=== PATIENT | female | born 1970 | race Caucasian/White ===

== ENCOUNTER 2016-10-16 12:57 | Emergency (ER) | payer OTHER ==
[~2016-10-16] VITALS: Ht 165.1 cm; Wt 108.9 kg
[~2016-10-16 12:57] MED LIST: ALBUTEROL-200 PUFFS/ IH; AMBIEN 10MG TAB10 MG PO; ASPIRIN 81MG TA81 MG PO; ASPIRIN EC325 MG PO; AUGMENTIN250 MG/52 PO; BENTYL10 M1 PO; CIPRO 750MG TA750 MG PO; DIFLUCAN 100MG100 MG PO; DIFLUCAN150 MG PO; DULERA1 AR1 IH; FISH OIL1000 MG PO; IPRATROPIUM BROM3 M1 IH; KEFLEX 500MG.500 MG PO; LEVAQUIN500 MG PO; LEVOTHYROXIN0.025 M1 PO; LEVOTHYROXINE0.05 M2 PO; LOPRESSOR 25MG.25 MG PO; MEDROL 4MG. DOSE4 MG PO; MINIVELLE0.025 MG/2 TD; NOMEDS *; PERCOCET1 TAB PO; PHENERGAN W/CO473 ML PO; PHENERGAN25 M3 PO; POTASSIUM CHLO10 ME3 PO; PREDNISONE 20MG20 MG PO; PREDNISONE50 MG PO; PRILOSEC20 M1 PO; PROAIR HFA0.09 MG/AC IH; REGLAN 5MG TABLE5 MG PO; SALMETEROL-F28 PUFFS IN; SYNTHROID 0.00.05 MG PO; TESSALON PERLE100 MG PO; TYLENOL W/CODEI1 TA2 PO; ULTRAM 50 MG TA50 MG PO; VICODIN 7.5/501 EACH PO; VITAMIN D31000 IU PO; VOLTAREN75 MG PO; ZITHROMAX Z PA250 MG PO; ZITHROMAX Z-PA250 M1 PO; ZOFRAN ODT4 MG PO; ZOFRAN ODT8 MG PO; ZOLPIDEM10 M1 PO
[2016-10-16 13:21] LABS: HEMOGLOBIN 12.4 g/dL (12.2-16.2); LYMPH % 44.1 % (10-50.0)
--- NOTE | 2016-10-16 13:32 | Emergency Room Report ---
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 N Clinical Suspician of Infection? N Mental Status: 1 - Regular (Normal Baseline) Sepsis Risk:Low Sepsis Risk Have you (or family members/close friends) recently traveled outside the [place]? N If Yes, where/when: Have you had exposure to infectious disease within the past month? TB? Other? 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 Patient states that she has suffered from headaches now for several months and that this is not the worst headache of her life, was not thunderclap in origin. She takes Claritin daily for seasonal ALLERGIES, but continues to have nasal congestion. 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 She denies any chest pain, history of blood clots, cancer. She does not take exogenous estrogen and no recent periods of prolonged immobility. She does have a history of pneumonia that required CT chest for diagnosis as her pneumonia does not frequently show up on chest x-ray. No fevers, vomiting, diarrhea. She denies any chest pain. ALLERGIES Coded Allergies: No Known Allergies (10/16/16) Home Medications Active Scripts CEPHALEXIN (Keflex 500MG Capsule) 500 MG PO Q8H #30 CAP Prov: 08/28/16 Prednisone (Prednisone 20MG) 20 MG PO BID #10 TAB Prov: 08/28/16 Reported Medications Levothyroxine Sodium 0.05 MG PO DAILY #30 Zolpidem Tartrate (Ambien 10MG) 10 MG PO QHS PRN SLEEP OXYCODONE HCL/ACETAMINOPHEN (Percocet 5-325 MG Tablet) 1 TAB PO Q8PRN Fluconazole (Diflucan 100MG) 100 MG PO DAILY PROMETHAZINE HCL (Phenergan 25MG Tab (Geq)) 25 MG PO Q6HP PRN N/V ALBUTEROL-IPRATROPIUM (Iprat-Albut 0.5-3(2.5) MG/3 Ml) 3 ML IH Q2HP PRN BREATHING Albuterol (Albuterol-Hfa Inhaler) 1 PUFF IH PRN PRN BREATHING OMEPRAZOLE MAGNESIUM (Prilosec 20MG) 20 MG PO DAILY ASPIRIN (Aspirin) 81 MG PO DAILY CHOLECALCIFEROL (VITAMIN D3) (Vitamin D) 1,000 IUNITS PO DAILY History Medical History General CAD? No Angina: No LA: No Hypertension? No Hyperlipidemia? No CHF? No DVT? No PE? No COPD? No Asthma? Yes Anemia? No GERD? No Gastric ulcers? No GI Bleed? No Hernia? No Thyroid Problems? Yes Hypothyroidism? No CVA? No Seizures? No Diabetes? No Insulin Dependent: No Insulin Pump: No Home FSBS? No Renal Insuffiency? No End Stage Renal Disease? No UTI? No Stones? No BPH? No GB Disease: Yes Nephritic Syndrome? No Asplenia? No Hepatitis? No Sickle Cell Disease? No Arthritis? No Migraines? No Cataracts? No Glaucoma? No MRSA? No HIV? No TB? No Anxiety? No Depression? No Cancer? No More? 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 Hx LMP N/A Family History Family Hx Diabetes Yes CAD No Hypertension Yes Hyperlipidemia Yes Cancer Yes TB No Social History Smoking Hx Smoker: Former Smoker Tobacco: No Type Cigarettes Packs/day 1 1/2 - 2 Packs Alcohol Alcohol: No Review of Systems All Other Systems Reviewed and Negative Physical Exam Vital Signs Vital Signs Date Time Temp Pulse Resp B/P Pulse O2 O2 Flow FiO2 Ox Delivery Rate 10/16 1454 65 18 159/71 99 10/16 1452 18 10/16 1300 98.2 82 18 152/87 95 General Appearance normal appearance, WD/WN Eye Exam - bilateral eye normal exam, bilateral eye PERRL, bilateral eye EOMI Ear, Nose, Throat hearing grossly normal, normal pharynx, nasal congestion, erythematous nasal mucosa Neck normal inspection, non-tender, supple, full range of motion Respiratory Status Yes: chest symmetrical, non tender chest. No: respiratory distress. Lung Sounds bilateral: normal breath sounds, lungs clear. Cardiovascular normal exam, regular rate/rhythm, no peripheral edema, no gallop, no JVD, no murmur, no rub, normal peripheral pulses Gastrointestinal normal bowel sounds, normal exam, non tender Extremities non-tender, normal range of motion Strength 5 Upper Ext (L), 5 Upper Ext (R), 5 Lower Ext (L), 5 Lower Ext (R) Neurologic alert, no motor/sensory deficits, oriented x 3 Skin intact, normal color, warm/dry Medical Decision Making LABS/Meds/Orders Pt receiving controlled substance in ED? No Results/Orders Laboratory Tests 10/16/16 1325: Influenza Type A Ag NOT DETECTED, Influenza Type B Ag NOT DETECTED 10/16/16 1310: Sodium 141, Potassium 3.4 L, Chloride 105, Carbon Dioxide 28, BUN 9, Creatinine 0.8, Estimated Creat Clear 154, Estimated GFR (MDRD) 78, Glucose 99, Calcium 8.7 , Total Bilirubin 0.6, AST 37, ALT 54, Alkaline Phosphatase 94, Total Protein 7.5, Albumin 3.5, Globulin 4.0 H, Albumin/Globulin Ratio 0.9 L, WBC 6.8, RBC 4.54, Hgb 12.4, Hct 37.2, MCV 82.0 L, RDW 16.8, Plt Count 209, Gran % 49.4, Gran # 3.4, Lymphocytes % 44.1, Monocytes % 6.5, Lymphocytes # 3.0, Monocytes # 0.4, PUBS MCHC 33.3, MCH 27.3 Current Medication Orders Sig/Sadi Start time Last Medication Dose Route Stop Time Status Admin Dexamethasone 10 MG ONCE ONE 10/16 1545 AC 10/16 PO 10/16 1546 1541 Dexamethasone 0 .STK-MED ONE 10/16 1537 DC .ROUTE Ketorolac 30 MG ONCE ONE 10/16 1500 DC 10/16 Tromethamine IV 10/16 1501 1452 Sodium Chloride 500 ML .STK-MED ONE 10/16 1447 DC IV Ketorolac 0 .STK-MED ONE 10/16 1446 DC Tromethamine .ROUTE Iopamidol 60 ML ONCE ONE 10/16 1445 DC / IV 10/16 1446 1435 Sodium Chloride 20 ML ONCE ONE 10/16 1445 DC / IV 10/16 1446 1435 Sodium Chloride 20 ML ONCE ONE 10/16 1445 DC / IV 10/16 1446 1435 Sodium Chloride 10 ML PRN PRN 10/16 1445 AC 10/16 IV 10/16 1604 1435 Albuterol/Ipratropium 0 .STK-MED ONE 10/16 1320 DC INH Albuterol/Ipratropium 3 ML ONCE ONE 10/16 1315 DC 10/16 INH 10/16 1316 1454 Sodium Chloride 10 ML PRN PRN 10/16 1315 AC IV 10/17 1306 Orders Procedure Date/time Status DIET-NOTHING BY MOUTH 10/16 D Active INFLUENZA A&B ANTIGENS 10/[address] CHEST W/PE PROTOCOL REQ 10/16 1325 Complete RT REQUEST DUONEB 10/16 1306 Active IV SALINE LOCK 10/16 1306 Active CBC WITH AUTO DIFF 10/16 1306 Complete CHEM 12 PROFILE 10/16 1306 Complete XRAY/CT/US XRAY/CT/US XRAY chest XR interpretation by reviewed by me Xray Results normal/NAD CT chest CT Results no PE, possible infectious versus inflammatory reaction LEFT upper lobe Departure Departure Disposition DC Home or Self Care(routine) Clinical Impression Primary Impression: Inflammation of lung Condition STABLE Referrals Som ROWAN,Jesus Osborn (Family) Additional Instructions Take steroids as prescribed. Follow up with primary care provider in 2 days for reevaluation. Return to the emergency department for any acute respiratory distress. Prescriptions Current Visit Scripts Methylprednisolone (Medrol Dose Terell) 4 MG PO UD #1 TERELL TAKE DIRECTED ON PACKAGING ED Critical Care Critical Care No Comments Patient is vital signs within normal limits, has been coughing up blood and headache this morning. She has known sinus disease and headache could be related to this. 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 She has had episodes exactly like this where she has cough, CT diagnosed pneumonia, headache and is given 2 rounds of antibiotics, multiple rounds of steroids and eventually her symptoms resolved. This makes me suspicious that her symptoms really may not be infectious in nature and are more likely inflammatory, resolving either with steroids or spontaneously. She does not have a white count and no fever here. Her CT scan shows inflammation versus infection (no PE), but given her excellent oxygen saturations on room air, no fever, white count I would favor inflammation. I discussed this with the patient and we have considered the risks and benefits of antibiotics versus steroids or both. At this time, given the history, exam, lab findings, we have decided to move forward with steroids only. She is given Decadron here and will be discharged home with a Medrol Dosepak. She will need follow-up with her primary care provider in 2 days for reevaluation. Return to the emergency department for any acute new concerns. at [id number]
--- NOTE | 2016-10-16 14:08 | RADIOLOGY REPORT PS360 ---
CHEST(2 VIEWS-NOT PORTABLE) HISTORY: COUGH,CONGESTION ORDERING PHYSICIAN: Iraj Keller MD PATIENT AGE: 46 years COMPARISON: None available FINDINGS: The cardiomediastinal silhouette and pulmonary vascularity are within normal limits. The lungs are clear without infiltrates, suspicious nodules, or pleural effusions. No acute bony abnormalities. IMPRESSION: Negative chest, no acute finding
--- NOTE | 2016-10-16 15:21 | RADIOLOGY REPORT PS360 ---
CTA-CHEST HISTORY: Hemoptysis, elevated d-dimer HEMOPTYSIS ORDERING PHYSICIAN: Iraj Keller MD PATIENT AGE: 46 years TECHNIQUE: Helical acquisition obtained following the bolus administration of 60 mL of Isovue 370 followed by a saline bolus. Axial, sagittal, and coronal reformatted images are generated and reviewed. COMPARISON: 01/15/2016 FINDINGS: PULMONARY ARTERIES:No pulmonary embolus evident. AORTA:No acute finding. No thoracic aortic aneurysm or dissection evident LUNGS:Lung apices are not included. Old granulomatous disease. There are few scattered lucencies in the lungs nonspecific. No lobar consolidation or collapse. There is patchy tree-in-bud pattern involving the superior segment of the left lower lobe not readily apparent on the previous exam suspicious for inflammation/infection PLEURAL SPACES:No significant effusion. No evidence of pneumothorax. HEART:Unremarkable. Normal heart size. No significant pericardial effusion. MEDIASTINAL AND HILAR STRUCTURES:No mediastinal or hilar mass evident. No dominant adenopathy. BONY STRUCTURES:No acute bony abnormalities apparent LYMPH NODES:No enlarged lymph nodes evident UPPER ABDOMEN:Diffuse fatty liver IMPRESSION: 1. No evidence of pulmonary embolus, aortic aneurysm or dissection. 2. Tree-in-bud pattern in the superior segment left upper lobe consistent with pneumonia
[2016-10-16] MEDS ORDERED: MEDROL 4MG. DOSE4 MG PO (15:41)
[2016-10-16 15:53] VITALS: BP 143/76
[2016-11-27] MEDS ORDERED: BENTYL10 M1 PO (16:58)
[2016-11-27] MEDS ORDERED: ZOFRAN ODT4 MG PO (16:58)
== END 2016-10-16 15:54 | disposition home or self-care (01) ==
LOC: ER 12:57
PROVIDERS: Emergency Medicine
DX: J18.9 Pneumonia, unspecified organism (principal); Z87.891 Personal history of nicotine dependence; J45.909 Unspecified asthma, uncomplicated; R51 Headache
CPT/HCPCS: Q9967

== ENCOUNTER → 2016-11-28 | Outpatient (CLI) | payer OTHER ==
[2016-11-28 15:14] LABS: AEROMONAS NOT DETECTED (NOT DETECTE); CYCLOSPORA CAYETANENSIS NOT DETECTED (NOT DETECTE); E COLI O157 NOT DETECTED (NOT DETECTE); ENTEROAGGREGATIVE E COLI NOT DETECTED (NOT DETECTE); ENTEROPATHOGENIC E COLI NOT DETECTED (NOT DETECTE); ENTEROTOXIGENIC E COLI NOT DETECTED (NOT DETECTE); SHIGA-LIKE TOXIN PROD. E COLI NOT DETECTED (NOT DETECTE); SHIGELLA/ENTEROINVASIVE E COLI NOT DETECTED (NOT DETECTE); VIBRIO CHOLERAE NOT DETECTED (NOT DETECTE)
[2016-11-28 15:15] LABS: ASTROVIRUS NOT DETECTED (NOT DETECTE); NOROVIRUS NOT DETECTED (NOT DETECTE); SAPOVIRUS NOT DETECTED (NOT DETECTE)
== END ==
LOC: LAB 15:13
PROVIDERS: Emergency Medicine
DX: R19.7 Diarrhea, unspecified (principal)

== ENCOUNTER → 2017-01-23 | Outpatient (CLI) | payer OTHER ==
[2017-01-23 14:56] LABS: BUN 9 mg/dL (7-18)
[2017-01-23 15:31] LABS: GFR (ESTIMATED) 44 ML/MIN (59-)
[2017-01-23 15:54] LABS: HEMOGLOBIN 13.2 g/dL (12.2-16.2); LYMPH % 43.1 % (10-50.0)
== END ==
LOC: LAB 14:21
PROVIDERS: Internal Medicine
DX: J45.901 Unspecified asthma with (acute) exacerbation (principal); R91.8 Other nonspecific abnormal finding of lung field

== ENCOUNTER 2017-05-17 14:43 | Outpatient (CLI) | payer OTHER ==
[~2017-05-17 14:43] MED LIST changes: +ALDACTONE 25MG25 MG PO; +DULOXETINE HYDR20 MG PO; +FUROSEMIDE40 MG PO; +GABAPENTIN100 MG PO; +LEVOTHYROXIN0.088 MG PO; +METOPROLOL SUCC25 M2 PO; +MONTELUKAST SOD10 MG PO; +PROPRANOLOL HCL60 MG PO
[2017-05-17 15:05] VITALS: BP 141/90
== END 2017-05-17 15:10 | disposition home or self-care (01) ==
LOC: COP 14:43
DX: J40 Bronchitis, not specified as acute or chronic (principal)

== ENCOUNTER 2017-05-26 11:58 | Emergency (ER) | payer OTHER ==
[~2017-05-26] VITALS: Ht 165.1 cm; Wt 108.9 kg
[2017-05-26] MEDS ORDERED: METFORMIN 500M500 M1 PO (12:06)
[2017-05-26 12:16] LABS: LYMPH # 2.8 K/mm3 (0.7-4.5); LYMPH % 46.1 % (10-50.0)
--- NOTE | 2017-05-26 12:22 | Emergency Room Report ---
History of Present Illness Time Seen by MD Silva Presenting Problem in Triage Pt arrived:Walked Presenting Problem:PT ADVISES SHE STARTED HAVING TIGHT CHEST PAINS LAST NIGHT WITH STABBING HER IN BACK AND PAIN IN HER JAW. HER CHEST PAIN CONTINUED ALL NIGHT AND STILL FEELS TIGHT THIS MORNING. 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 N Clinical Suspician of Infection? N Mental Status: 1 - Regular (Normal Baseline) Sepsis Risk:Low Sepsis Risk Have you (or family members/close friends) recently traveled outside the [place]? N If Yes, where/when: Have you had exposure to infectious disease within the past month? N TB? Other? Specify: Chest pain, continuous at rest, radiating to jaw, since last night; given aspirin on arrival to ED. Has a little nausea, no diaphoresis, a little SOB, no calf pain. Is a patient of Dr. Rosa; has been referred to EP due to bigeminy and trigeminy persistently over the past three months. ALLERGIES Coded Allergies: No Known Allergies (03/10/17) Home Medications Active Scripts Furosemide (Furosemide 40MG) 40 MG PO DAILY #30 TAB Prov: 03/15/17 Spironolactone (Aldactone) 25 MG PO DAILY #30 TAB Prov: 03/15/17 Metoprolol Succinate 25 MG PO DAILY #30 Prov: 03/15/17 Reported Medications DULOXETINE HCL (Duloxetine Hydrochloride) 20 MG PO DAILY #60 Zolpidem Tartrate (Ambien 10MG) 10 MG PO QHS PRN SLEEP ALBUTEROL-IPRATROPIUM (Iprat-Albut 0.5-3(2.5) MG/3 Ml) 3 ML IH Q2HP PRN BREATHING Albuterol (Albuterol-Hfa Inhaler) 1 PUFF IH PRN PRN BREATHING OMEPRAZOLE MAGNESIUM (Prilosec 20MG) 20 MG PO DAILY CHOLECALCIFEROL (VITAMIN D3) (Vitamin D) 1,000 IUNITS PO DAILY Levothyroxine Sodium (Levothyroxine 0.088MG) 0.088 MG PO DAILY #30 Metformin HCl (Metformin) 500 MG PO BID #60 History Medical History General CAD? No Angina: Yes [place]: No Hypertension? No Hyperlipidemia? No CHF? No DVT? No PE? No COPD? No Asthma? Yes Anemia? No GERD? No Gastric ulcers? No GI Bleed? No Hernia? No Thyroid Problems? Yes Hypothyroidism? Yes CVA? No Seizures? No Diabetes? Yes Insulin Dependent: No Insulin Pump: No Home FSBS? No Renal Insuffiency? No End Stage Renal Disease? No UTI? Yes Stones? No BPH? No GB Disease: Yes Nephritic Syndrome? No Asplenia? No Hepatitis? No Sickle Cell Disease? No Arthritis? No Migraines? No Cataracts? No Glaucoma? No MRSA? Yes HIV? No TB? No Anxiety? No Depression? No Cancer? No More? 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 Family History Family Hx Diabetes Yes CAD No Hypertension Yes Hyperlipidemia No Cancer Yes TB No Social History Smoking Hx Smoker: Former Smoker Tobacco: No Packs/day 1 1/2 - 2 Packs Alcohol Alcohol: No Review of Systems All Other Systems Reviewed and Negative Cardiovascular see HPI Physical Exam Vital Signs Vital Signs Date Time Temp Pulse Resp B/P Pulse O2 O2 Flow FiO2 Ox Delivery Rate 05/26 1414 50 16 131/70 98 05/26 1336 50 16 116/55 98 05/26 1333 16 05/26 1249 58 16 144/105 98 05/26 1224 16 05/26 1159 98.2 71 16 147/104 98 General Appearance normal appearance, WD/WN, no apparent distress Eye Exam - bilateral eye normal exam, bilateral eye PERRL, bilateral eye EOMI Neck normal inspection, non-tender, supple, full range of motion Respiratory Status Yes: trachea midline, chest symmetrical, non tender chest. No: respiratory distress, tender on palpation, use of accessory muscles, pain on inspiration, pain on expiration. Lung Sounds bilateral: normal breath sounds, lungs clear. Cardiovascular normal exam, regular rate/rhythm, no peripheral edema, no gallop, no JVD, no murmur, no rub, normal peripheral pulses (bigeminy on monitor), extra beats Peripheral Pulses Pulses normal Yes Gastrointestinal normal bowel sounds, normal exam, non tender, soft, no organomegaly, no pulsatile mass, no guarding, no rebound Extremities non-tender, normal range of motion, normal inspection, normal capillary refill, no calf tenderness, no pedal edema Strength 5 Upper Ext (L), 5 Upper Ext (R), 5 Lower Ext (L), 5 Lower Ext (R) Neurologic alert, normal exam, no motor/sensory deficits, oriented x 3 Glascow Coma Scale Glascow Coma Scale Response Value EYE response: 4 Spontaneously 4 MOTOR response: 6 OBEYS 6 VERBAL response: 5 Oriented & Converses 5 Total 15 Skin intact, normal color Medical Decision Making LABS/Meds/Orders Pt receiving controlled substance in ED? No Results/Orders Laboratory Tests 05/26/17 1410: Urine Color YELLOW, Urine Appearance SL CLOUDY, Urine pH 6.0, Ur Specific [place] 1.025, Urine Protein NEGATIVE, Urine Ketones NEGATIVE, Urine Blood NEGATIVE, Urine Nitrate NEGATIVE, Urine Bilirubin NEGATIVE, Urine Urobilinogen 0.2, Ur Leukocyte Esterase 1+ H, Urine RBC NONE, Urine WBC 3-5, Ur Squamous Epith Cells 20-50, Urine Bacteria 2+, Urine Glucose NEGATIVE 05/26/17 1210: Sodium 140, Potassium 4.2, Chloride 106, Carbon Dioxide 27, BUN 15, Creatinine 1.3 H, Estimated Creat Clear 95, Estimated GFR (MDRD) 44 L, Glucose 119 H, Calcium 8.9, Total Bilirubin 0.4, AST 28, ALT 53, Alkaline Phosphatase 102, Creatine Kinase 78, CK-MB (CK-2) Rel Index 0.6, CK and CKMB Interp < 0.5, Troponin I < 0.02, Total Protein 7.8, Albumin 4.0, Globulin 3.8 H, Albumin/ Globulin Ratio 1.1, WBC 6.1, RBC 4.61, Hgb 13.0, Hct 37.8, MCV 82.0 L, RDW 15.4 , Plt Count 190, MPV 8.0, Gran % 42.3, Gran # 2.6, Lymphocytes % 46.1, Monocytes % 6.1, Eosinophils % 4.5, Basophils % 1.1, Lymphocytes # 2.8, Monocytes # 0.4, Eosinophils # 0.3, Basophils # 0.1, PUBS MCHC 34.4, MCH 28.2 Current Medication Orders Sig/Sadi Start time Last Medication Dose Route Stop Time Status Admin Diltiazem HCl 180 MG BID 05/26 2100 UNV PO Diltiazem HCl 180 MG ONCE ONE 05/26 1515 UNV PO 05/26 1516 Morphine Sulfate 2 MG ONCE ONE 05/26 1500 DC IV 05/26 1501 Furosemide 0 .STK-MED ONE 05/26 1404 DC .ROUTE Furosemide 40 MG ONCE ONE 05/26 1400 DC 05/26 IV 05/26 1401 1406 Morphine Sulfate 2 MG ONCE ONE 05/26 1345 DC 05/26 IV 05/26 1346 1333 Ondansetron HCl 0 .STK-MED ONE 05/26 1334 DC .ROUTE Morphine Sulfate 0 .STK-MED ONE 05/26 1333 DC .ROUTE Ondansetron HCl 4 MG ONCE ONE 05/26 1330 DC 05/26 IV 05/26 1331 1333 Nitroglycerin 0.4 MG ONCE ONE 05/26 1230 DC 05/26 SL 05/26 1231 1224 Nitroglycerin 0 .STK-MED ONE 05/26 1224 DC SL Aspirin 324 MG ONCE ONE 05/26 1215 DC 05/26 PO 05/26 1216 1208 Sodium Chloride 10 ML PRN PRN 05/26 1215 AC IV 05/27 1207 Aspirin 0 .STK-MED ONE 05/26 1206 DC .ROUTE Orders Procedure Date/time Status URINALYSIS/COMPLETE 05/26 1411 Complete CULTURE, URINE 05/26 1410 Active ELECTROCARDIOGRAM REQUEST 05/26 1207 Active CHEST(2 VIEWS-NOT PORTABLE) 05/26 1207 Active IV SALINE LOCK 05/26 120 Active CBC WITH AUTO DIFF 05/26 1207 Complete CARDIAC ENZYMES 05/26 1207 Complete CHEM 12 PROFILE 05/26 1207 Complete 12 LEAD EKG-ZAINAB (INITIAL) 05/26 UNK Active CM/EKG CM/EKG EKG rate, rhythm, no evid. of ischemic chgs, normal LA (bigeminy QTc 504;) XRAY/CT/US XRAY/CT/US XRAY chest XR interpretation by reviewed by me Xray Results normal/NAD, no infiltrates, normal heart size, normal lung inflation nilam Consult MD Physician Consult Time Called 1251 Reason Pt. Condition, Cardiology eval/care Comments called clinic for Jamin Bright to eval pt in ED please Progress ED Progress Notes Date 05/26/17 Time 151 Comment Seen by Jamin Bright; see his note. Will stop Metoprolol and he wrote an Rx for Diltiazem. Departure Departure Time of Disposition 151 Disposition DC Home or Self Care(routine) Clinical Impression Primary Impression: Chest pain Qualifiers: Chest pain type: precordial pain Qualified Code: R07.2 - Precordial pain Secondary Impressions: Bigeminy Condition STABLE Referrals Som ROWAN,Jesus Osborn (PCP/Family) Richar Rosa MD Patient Instructions DI for Chest Pain Additional Instructions STOP Metoprolol; Jamin Bright wrote an Rx for Diltiazem; Dr. Rosa's office is trying to arrange follow up with EP and will contact you with further details. Discharge Counseling Counseled pt/family regarding diagnosis, test results, medications/RX, home care, follow up needs ED Critical Care Critical Care No at 1512
[2017-05-26 12:45] LABS: BUN 15 mg/dL (7-18)
[2017-05-26 12:46] LABS: GFR (ESTIMATED) 44 ML/MIN (59-)
--- NOTE | 2017-05-26 13:48 | CONSULT NOTE ---
See Addendum Standard Demographics Patient Demo Date of Consultation: 05/26/17 Referring Provider: Nela Amador MD Reason for Consultation: Chest pain, bigeminy PRIMARY DIAGNOSIS: chest pain Problem list Problem list: 1. Hypothyroidism, on replacement 2. Remote tobacco use discontinued several years ago, previously smoked one pack per day for about 20 years 3. SHARRON, CPAP use 4. Possible autoimmune disorder, negative workup at [facility] 5. Cardiac cath, 02/2017, Normal coronary arteries. Mild left ventricular dilatation with overall preserved ejection fraction at 55%. Severely elevated LVEDP at 40-45 mm Hg. 6. Diabetes 7. Asthma History of present illness: History of present illness: 46 yo WF with history significant for normal coronaries by cath 02/2017 and persistent frequent PVC's was brought to the ER for chest pain. Patient relates chest pressure anteriorly with sharp discomfort in the back last evening with some associated jaw discomfort that prevented her from resting last night. Symptoms were intermittent throughout the night. Currently, she is in the ERand lying flat on the stretcher in no acute distress. manager contact shows persistent bigeminy. Recently the patient has been titrated up on isosorbide mononitrate without relief of intermittent chest discomfort. Diuretic therapy has been adjusted in the past without significant improvement in her shortness of breath or symptomatology of PVCs. Recommendation has been made for the patient to see an surgical endoscopist in [facility]. The appointment has not been made at this time. Cardiology consulted for evaluation. Initial troponin is normal. Past Medical History: General: Hypertension No CVA No Seizures No TB No COPD No Asthma Yes Diabetes Yes Insulin Dependent No Insulin Pump No Angina Yes TN No Hyperlipidemia No Urinary No Cancer No Rheumatic H.D. No Ulcers No MRSA Yes GB Disease Yes Additional hx DJD OCCULT PNEUMONIA THAT DOESN'T REVEAL ON REG CHEST XRAYS; REQUIRES CT CHEST WITH CONTRAST TO BE SEEN (10/16/16) BIJEMENY Past Surgical HX: Previous Surgery?Y Cholecystectomy Hysterectomy-Partial SLING MESH HYSTERECTOMY LEFT OVARY REMOVED HEART CATH Allergies Coded Allergies: No Known Allergies (03/10/17) Home medications: Active Scripts Furosemide (Furosemide 40MG) 40 MG PO DAILY #30 TAB Prov: 03/15/17 Spironolactone (Aldactone) 25 MG PO DAILY #30 TAB Prov: 03/15/17 Metoprolol Succinate 25 MG PO DAILY #30 Prov: 03/15/17 Reported Medications DULOXETINE HCL (Duloxetine Hydrochloride) 20 MG PO DAILY #60 Zolpidem Tartrate (Ambien 10MG) 10 MG PO QHS PRN SLEEP ALBUTEROL-IPRATROPIUM (Iprat-Albut 0.5-3(2.5) MG/3 Ml) 3 ML IH Q2HP PRN BREATHING Albuterol (Albuterol-Hfa Inhaler) 1 PUFF IH PRN PRN BREATHING OMEPRAZOLE MAGNESIUM (Prilosec 20MG) 20 MG PO DAILY CHOLECALCIFEROL (VITAMIN D3) (Vitamin D) 1,000 IUNITS PO DAILY Levothyroxine Sodium (Levothyroxine 0.088MG) 0.088 MG PO DAILY #30 Metformin HCl (Metformin) 500 MG PO BID #60 Current Medications: Current Medications Morphine Sulfate 2 MG ONCE ONE IV Ondansetron HCl 0 .STK-MED ONE .ROUTE (DC) Morphine Sulfate 0 .STK-MED ONE .ROUTE (DC) Ondansetron HCl 4 MG ONCE ONE IV (DC) Nitroglycerin 0.4 MG ONCE ONE SL (DC) Nitroglycerin 0 .STK-MED ONE SL (DC) Aspirin 324 MG ONCE ONE PO (DC) Sodium Chloride 10 ML PRN PRN IV Aspirin 0 .STK-MED ONE .ROUTE (DC) Immunization HX DT/Tetanus Unknown Flu 2015-FSN Pneumonia RECEIVED IN PAST Family history Family HX Family Hx Insignificant No Diabetes Yes CAD No Hypertension Yes Hyperlipidemia No Cancer Yes TB No Social Hx: Smoking HX Tobacco No Packs/day 1 1/2 - 2 PACKS Alcohol Alcohol: No Hx of Drug Use Drug Use? No Patien't marital status is Patient's support system is good Review of systems: Constitutional weakness. Respiratory SOB with excertion. Cardiovascular chest pain Gastrointestinal/Abdominal No no symptoms reported Genitourinary No: no symptoms reported. Musculoskeletal back pain. Neurological No: no symptoms reported. Exam: Admission Vital Signs: 1ST Vital Signs Result Date Time Pulse Ox 98 05/26 1159 B/P 147/104 05/26 1159 Temp 98.2 05/26 1159 Pulse 71 05/26 1159 Resp 16 05/26 1159 Last Vital Signs: Vital Signs Result Date Time Pulse Ox 98 05/26 1336 B/P 116/55 05/26 133 Pulse 50 05/26 1336 Resp 16 05/26 1336 Temp 98.2 05/26 1159 Exam General appearance: alert, awake, no acute distress Cardiovascular: regular rate & rhythm, extra beats Respiratory: clear to auscultation, good air movement ABD: soft, no tenderness Extremities: moves all, no peripheral edema Neuro: alert, intact, oriented Laboratory data: Laboratory Tests 05/26/17 1210: Sodium 140, Potassium 4.2, Chloride 106, Carbon Dioxide 27, BUN 15, Creatinine 1.3 H, Estimated Creat Clear 95, Estimated GFR (MDRD) 44 L, Glucose 119 H, Calcium 8.9, Total Bilirubin 0.4, AST 28, ALT 53, Alkaline Phosphatase 102, Creatine Kinase 78, CK-MB (CK-2) Rel Index 0.6, CK and CKMB Interp < 0.5, Troponin I < 0.02, Total Protein 7.8, Albumin 4.0, Globulin 3.8 H, Albumin/ Globulin Ratio 1.1, WBC 6.1, RBC 4.61, Hgb 13.0, Hct 37.8, MCV 82.0 L, RDW 15.4 , Plt Count 190, MPV 8.0, Gran % 42.3, Gran # 2.6, Lymphocytes % 46.1, Monocytes % 6.1, Eosinophils % 4.5, Basophils % 1.1, Lymphocytes # 2.8, Monocytes # 0.4, Eosinophils # 0.3, Basophils # 0.1, PUBS MCHC 34.4, MCH 28.2 Plan: Assessment: 1. Chest pain, etiology unknown. 2. PVCs in a bigeminal pattern 3. Normal coronary arteries with diastolic dysfunction has evidenced by LVEDP of 40-45 mmHg on cardiac catheterization 02/2017 Recommendations: 1. I have discussed the situation with Dr. Rosa. We will continue nitrate and beta bisi therapy and increase diuretic therapy. 2. I am contacting Dr. Tripp, surgical endoscopist at [facility] in [facility], to try and arrange for evaluation in the near future, possibly this week. at [phone]
[2017-05-26 14:27] LABS: URINE BILIRUBIN - DIPSTICK NEGATIVE (NEG); URINE BLOOD NEGATIVE (NEG)
[2017-05-26 14:35] LABS: URINE SQUAMOUS CELLS 20-50 #/hpf (0-5)
[2017-05-26 16:48] VITALS: BP 140/60
--- NOTE | 2017-05-26 17:57 | RADIOLOGY REPORT PS360 ---
CHEST(2 VIEWS-NOT PORTABLE) HISTORY: Chest pain and shortness of breath CHEST PAIN ORDERING PHYSICIAN: Nela Amador MD PATIENT AGE: 46 years COMPARISON: 03/13/2017 FINDINGS: The cardiomediastinal silhouette and pulmonary vascularity are within normal limits. The lungs are clear without infiltrates, suspicious nodules, or pleural effusions. No acute bony abnormalities. IMPRESSION: Negative chest, no acute finding
== END 2017-05-26 16:48 | disposition home or self-care (01) ==
LOC: ER 11:58
PROVIDERS: Emergency Medicine
DX: R07.2 Precordial pain (principal); Z79.84 Long term (current) use of oral hypoglycemic drugs; Z79.899 Other long term (current) drug therapy; J45.909 Unspecified asthma, uncomplicated; Z87.891 Personal history of nicotine dependence; E03.9 Hypothyroidism, unspecified; E11.9 Type 2 diabetes mellitus without complications
CPT/HCPCS: J2405

== ENCOUNTER 2017-06-21 19:05 | Emergency (ER) | payer OTHER ==
[~2017-06-21] VITALS: Ht 165.1 cm; Wt 108.9 kg
[~2017-06-21 19:05] MED LIST changes: +METFORMIN 500M500 M1 PO
--- NOTE | 2017-06-21 19:24 | Emergency Room Report ---
History of Present Illness Time Seen by 1922 Presenting Problem in Triage Pt arrived:Walked Presenting Problem:PT CO CHEST PAINS, SHARP STABBING IN NATURE, CONSTANT. GLUCOSE ALSO RUNNING AROUND 300, TOOK EXTRA METFORMIN WITH NO CHANGE IN GLUCOSE. 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 N Clinical Suspician of Infection? N Mental Status: 1 - Regular (Normal Baseline) Sepsis Risk:Low Sepsis Risk Have you (or family members/close friends) recently traveled outside the [place]? N If Yes, where/when: Have you had exposure to infectious disease within the past month? N TB? Other? Specify: Comment The patient points of chest pain as well as feeling hot and having an uncontrollable blood sugar. She says that she has chronic continuous chest pressure for over a month. She says she has been on bigeminy for a couple of months and is supposed to have an ablation done on Friday. However, today she has a new kind of chest pain which she describes as sharp intermittent pains that last for a couple of minutes, coming on every couple of hours, all day today. She has had some respiratory issues recently with a URI, but says other than that she is not having increased trouble breathing. She feels hot but no diaphoresis. No nausea or vomiting. She had preoperative testing done yesterday and saw an anesthesiologist. The sugar has been running 300s and 400s, which is unusual for her. She says she normally runs from the 70s to the 150s. She has taken extra metformin without improvement. She also feels generally hot, but without a fever. No recent hospitalizations or surgeries. No leg pain or swelling. He denies history of coronary artery disease. She does not have hypertension or hyperlipidemia. She does have pulmonary hypertension. ALLERGIES Coded Allergies: No Known Allergies (03/10/17) (Michelle ROWAN, Kris) Source patient, RN notes reviewed, family, old records Home Medications Active Scripts Furosemide (Furosemide 40MG) 40 MG PO DAILY #30 TAB Prov: 03/15/17 Spironolactone (Aldactone) 25 MG PO DAILY #30 TAB Prov: 03/15/17 Metoprolol Succinate 25 MG PO DAILY #30 Prov: 03/15/17 Reported Medications DULOXETINE HCL (Duloxetine Hydrochloride) 20 MG PO DAILY #60 Zolpidem Tartrate (Ambien 10MG) 10 MG PO QHS PRN SLEEP ALBUTEROL-IPRATROPIUM (Iprat-Albut 0.5-3(2.5) MG/3 Ml) 3 ML IH Q2HP PRN BREATHING Albuterol (Albuterol-Hfa Inhaler) 1 PUFF IH PRN PRN BREATHING OMEPRAZOLE MAGNESIUM (Prilosec 20MG) 20 MG PO DAILY CHOLECALCIFEROL (VITAMIN D3) (Vitamin D) 1,000 IUNITS PO DAILY Levothyroxine Sodium (Levothyroxine 0.088MG) 0.088 MG PO DAILY #30 Metformin HCl (Metformin) 500 MG PO BID #60 Prednisone (Prednisone 20MG) 20 MG PO DAILY (Som ROWAN,Jasmine Osborn) History Medical History General CAD? No Angina: Yes AR: No Hypertension? No Hyperlipidemia? No CHF? No DVT? No PE? No COPD? No Asthma? Yes Anemia? No GERD? No Gastric ulcers? No GI Bleed? No Hernia? No Thyroid Problems? Yes Hypothyroidism? Yes CVA? No Seizures? No Diabetes? Yes Insulin Dependent: No Insulin Pump: No Home FSBS? No Renal Insuffiency? No End Stage Renal Disease? No UTI? Yes Stones? No BPH? No GB Disease: Yes Nephritic Syndrome? No Asplenia? No Hepatitis? No Sickle Cell Disease? No Arthritis? No Migraines? No Cataracts? No Glaucoma? No MRSA? Yes HIV? No TB? No Anxiety? No Depression? No Cancer? No More? Yes Additional hx: DJD OCCULT PNEUMONIA THAT DOESN'T REVEAL ON REG CHEST XRAYS; REQUIRES CT CHEST WITH CONTRAST TO BE SEEN (10/16/16) BIJEMENY Immunization Hx Ped.Immunizations UTD Yes DT/Tetanus Unknown Flu 2015-FSN Pneumonia Received In Past Surgical Hx Previous Surgery?Y Cholecystectomy Hysterectomy-Partial SLING MESH HYSTERECTOMY LEFT OVARY REMOVED HEART CATH PICC NURSE Hx LMP menopause Family History Family Hx Diabetes Yes CAD No Hypertension Yes Hyperlipidemia No Cancer Yes TB No Social History Smoking Hx Smoker: Former Smoker Tobacco: No Packs/day 1 1/2 - 2 Packs Are you/the child exposed to second-hand smoke: No Alcohol Alcohol: No (Kris Martinez MD) Review of Systems All Other Systems Reviewed and Negative Constitutional see HPI, denies chills, denies diaphoresis, denies fever Respiratory denies cough, denies shortness of breath Cardiovascular chest pain, denies edema Gastrointestinal denies abdominal pain, denies vomiting (Kris Martinez MD) Physical Exam Vital Signs Vital Signs Date Time Temp Pulse Resp B/P Pulse O2 O2 Flow FiO2 Ox Delivery Rate 06/21 2159 73 20 177/116 94 06/21 2123 59 20 137/69 96 06/21 2052 62 20 154/88 95 06/21 1907 98.1 78 20 153/82 97 General Appearance no apparent distress Eye Exam - bilateral eye normal exam, bilateral eye PERRL, bilateral eye EOMI Ear, Nose, Throat hearing grossly normal, normal ENT inspection Neck normal inspection, non-tender, supple, full range of motion Respiratory Status Yes: trachea midline, chest symmetrical. No: respiratory distress. Lung Sounds bilateral: normal breath sounds, lungs clear. Cardiovascular no peripheral edema, no gallop, no JVD, no murmur, no rub, normal peripheral pulses, extra beats Peripheral Pulses Pulses normal Yes Gastrointestinal normal bowel sounds, normal exam, non tender, soft, no organomegaly Extremities non-tender, normal range of motion, normal inspection, no calf tenderness, no pedal edema Neurologic alert, health analyst II-XII nml as tested, normal exam, oriented x 3 Mental status normal mood/affect Skin intact, normal color, warm/dry (Kris Martinez MD) Medical Decision Making LABS/Meds/Orders Pt receiving controlled substance in ED? No Results/Orders Laboratory Tests 06/21/171950: POC Glucose 271 H 06/21/171909: Lipase 179 06/21/171909: Creatine Kinase 59, CK-MB (CK-2) Rel Index 0.8, CK and CKMB Interp 0.5, Troponin I < 0.02, TSH 0.84, Free T4 Index 5.6 L, Thyroxine (T4) 6.7, T3 Uptake 34 06/21/171909: Sodium 134 L, Potassium 3.3 L, Chloride 96 L, Carbon Dioxide 28, BUN 33 H, Creatinine 1.5 H, Estimated Creat Clear 82, Estimated GFR (MDRD) 38 L, Glucose 297 H, Calcium 9.0, Total Bilirubin 0.5, AST 21, ALT 57, Alkaline Phosphatase 107, Total Protein 8.3 H, Albumin 4.1, Globulin 4.2 H, Albumin/Globulin Ratio 1.0 L, WBC 11.9 H, RBC 5.05, Hgb 14.1, Hct 43.0, MCV 85.3, RDW 14.7, Plt Count 243, MPV 8.2, Gran % 80.3 H, Gran # 9.6 H, Lymphocytes % 14.0, Monocytes % 5.4 , Eosinophils % 0.1, Basophils % 0.2, Lymphocytes # 1.7, Monocytes # 0.6, Eosinophils # 0.0, Basophils # 0.0, PUBS MCHC 32.8, MCH 28.0 Current Medication Orders Sig/Sadi Start time Last Medication Dose Route Stop Time Status Admin Diphenhydramine HCl 25 MG ONCE ONE 06/21 2215 AC IV 06/21 2216 Ketorolac 30 MG ONCE ONE 06/21 2215 AC Tromethamine IV 06/21 2216 Promethazine HCl 12.5 MG ONCE ONE 06/21 2215 AC IV 06/21 2216 Sodium Chloride 25 ML ONCE ONE 06/21 2215 AC IV 06/21 2229 Aspirin 324 MG ONCE ONE 06/21 1930 DC 06/21 PO 06/21 Aspirin 0 .STK-MED ONE 06/21 1927 DC .ROUTE Sodium Chloride 10 ML PRN PRN 06/21 1915 AC IV 06/22 1912 Orders Procedure Date/time Status FINGERSTICK BLOOD SUGAR 06/21 1951 Complete LIPASE 06/21 1917 Complete ELECTROCARDIOGRAM REQUEST 06/21 1916 Active THYROID PANEL 2 (WITH TSH) 06/21 1916 Complete CARDIAC ENZYMES 06/21 1916 Complete IV SALINE LOCK 06/21 1912 Active CBC WITH AUTO DIFF 06/21 1912 Complete CHEM 12 PROFILE 06/21 1912 Complete 12 LEAD EKG-ZAINAB (INITIAL) 06/21 UNK Active CM/EKG CM/EKG Comments EKG interpreted by Kris Martinez MD: Rhythm: sinus Rate: 72 [place]: normal Ectopy: none Conduction: normal ST Segment Changes: none T Wave Changes: none Q Waves: none No evidence of acute ischemia or injury Progress - 8:00 PM: At shift change, I have discussed the patient with Dr. Kearns, who will assume care of the patient at this time. I have discussed all clinical information including history, physical and diagnostic study results. Preliminary diagnoses based on information available at this point have been recorded by me. Controlled substance administration and critical care statement are also preliminary, as of the time of handoff. (Kris Martinez MD) Departure Departure Condition STABLE Referrals Jesus Kearns MD (Family) ED Critical Care Critical Care No (Kris Martinez MD) Departure Time of Disposition 2201 Disposition DC Home or Self Care(routine) Clinical Impression Primary Impression: Atypical chest pain Secondary Impressions: Headache Qualifiers: Headache type: unspecified Headache chronicity pattern: acute headache Intractability: not intractable Qualified Code: R51 - Headache Hyperglycemia Patient Instructions DI for Headache Additional Instructions stop steroids and call pcp for xopenax for resp tx Discharge Counseling Counseled pt/family regarding diagnosis, test results, follow up needs (Jasmine Kearns MD) at 1957 at [phone]
[2017-06-21 19:31] LABS: HEMOGLOBIN 14.1 g/dL (12.2-16.2); LYMPH # 1.7 K/mm3 (0.7-4.5)
[2017-06-21 19:57] LABS: FREE THYROXIN INDEX 5.6 ug/dl (5.93-13.13)
[2017-06-21] MEDS ORDERED: PREDNISONE 20MG20 MG PO (19:57)
--- NOTE | 2017-06-21 21:44 | RADIOLOGY REPORT PS360 ---
CHEST(2 VIEWS-NOT PORTABLE) INDICATION: Chest pain COMPARISON: PA and lateral chest 05/26/2017 FINDINGS: The lung schuster are well expanded and appear clear of infiltrate. The cardiomediastinal silhouette and vascularity are normal. The costophrenic angles are clear. The bony thorax is normal. IMPRESSION: Normal chest.
[2017-06-21 22:27] VITALS: BP 139/92
--- OUTSIDE RECORDS SUMMARY | 2017-06-27 16:14 | External Medical Summary Rpt | CCD ---
Author Author , JENNIFER Organization JENNIFER Address Unknown Phone [email or web address] Purpose Continuity of Care Document - 04-01-2013 through 2016 Results Labs Lab Lab Date Result Refere Interp Status Commen Order Detail nces retati t Range on Urinalysis dipstick W Reflex Microscopic panel in Urine (05-26-2017 14:10) Bacteri 2+ O complet a 017 ed [Presen 14:10 ce] in Urine sedimen t by Light microsc opy Erythro NONE 0 complet cytes 017 ed [Presen 14:10 ce] in Urine sedimen t by Light microsc opy Epithel 20-50 0#/hp complet ial 017 f - ed cells.s 14:10 5#/hp quamous f [Presen ce] in Urine sedimen t by Microsc opy high power field Leukocy 3-5 O complet maria luz 017 wbc/hpf ed [#/volu 14:10 me] in Urine Urinalysis dipstick W Reflex Microscopic panel in Urine (05-26-2017 14:10) Appeara SL CLEAR complet nce of 017 CLOUDY ed Urine 14:10 Bilirub NEGATIV NEG complet in 017 E ed [Presen 14:10 ce] in Urine by Test strip Erythro NEGATIV NEG complet cytes 017 E ed [Presen 14:10 ce] in Urine Color YELLOW YELLOW complet of 017 ed Urine 14:10 Ketones NEGATIV NEG complet 017 E ed [Presen 14:10 ce] in Urine by Automat ed test strip Mucus 1+ NEG Abnorma complet [Presen 017 l ed ce] in 14:10 Urine sedimen t by Light microsc opy Nitrite NEGATIV NEG complet 017 E ed [Presen 14:10 ce] in Urine by Test strip Urobili 0.2 NEG complet nogen 017 ed [Presen 14:10 ce] in Urine by Test strip CRP SerPl-mCnc (04-15-2017 14:24) CRP 0.4 0-0.9 complet SerPl-m 017 mg/dL ed Cnc 14:24 TSH SerPl DL<=0.005 mIU/L-aCnc (04-15-2017 14:24) TSH 2.05 0.4-4.2 complet SerPl 017 uIU/mL ed DL<=0.0 14:24 05 mIU/L-a Cnc Vit B12 SerPl-mCnc (04-15-2017 14:24) Vit B12 382 210-103 complet 017 pg/mL 3 ed SerPl-m 14:24 Cnc Folate SerPl-mCnc (04-15-2017 14:24) Folate 11.8 >4.8 complet SerPl-m 017 ng/mL ed Cnc 14:24 ESR Bld Qn (04-15-2017 14:20) ESR Bld 31 0-20 complet Qn 017 mm/hr ed 14:20 Glucose [Mass/volume] in Serum or Plasma --2 hours post dose glucose (03-27-2017 10:40) Glucose NEGATIV complet 017 E ed [Presen 10:40 ce] in Urine by Test strip Glucose NEGATIV complet 017 E ed [Presen 10:40 ce] in Urine by Test strip --2 hours post dose glucose Glucose NEGATIV complet 017 E ed [Presen 10:40 ce] in Urine by Automat ed test strip Hemoglobin A1c in Blood (03-27-2017 10:40) Hemoglo 6.7 % 0.0% Normal complet bin A1c 017 - ed in 10:40 7.0% Blood
--- OUTSIDE RECORDS SUMMARY | 2017-06-27 16:14 | External Medical Summary Rpt | CCD ---
Demographics Preferred Language Guamanian Marital Status Unknown Shinto Affiliation Unknown Race Unknown Ethnic Group Unknown Author Author , JENNIFER RODRIGUEZ Address Unknown Phone Immunization No patient found.
--- OUTSIDE RECORDS SUMMARY | 2017-06-27 16:14 | External Medical Summary Rpt | CCD ---
Author Author , JENNIFER Organization JENNIFER Address Unknown Phone [email or web address] Purpose Continuity of Care Document - 04-01-2013 [...]
--- OUTSIDE RECORDS SUMMARY | 2017-06-27 16:14 | External Medical Summary Rpt | CCD ---
Demographics Preferred Language Guamanian Marital Status Unknown Jewish Affiliation Unknown Race Unknown Ethnic Group Unknown Author Author , JENNIFER RODRIGUEZ Address Unknown Phone Immunization No patient found.
--- OUTSIDE RECORDS SUMMARY | 2017-06-27 16:15 | External Medical Summary Rpt ---
Author Author JENNIFER Brownlee, [employer] Organization [employer] Address Unknown Phone Unavailable Results Urinalysis dipstick W Reflex Microscopic panel in Urine Observa Value Referen Units Interpr Notes Date tion ce etation Range Appeara SL CLEAR No No No Sep 11 nce of CLOUDY informa informa informa 2017 Urine tion in tion in tion in 2:10 PM source source source data data data Bacteri 2+ O No No No Sep 11 a informa informa informa 2016 [Presen tion in tion in tion in 2:10 PM ce] in source source source Urine data data data sedimen t by Light microsc opy Bilirub NEGATIV NEG No No No Sep 11 in E informa informa informa 2017 [Presen tion in tion in tion in 2:10 PM ce] in source source source Urine data data data by Test strip Erythro NEGATIV NEG No No No Sep 11 cytes E informa informa informa 2017 [Presen tion in tion in tion in 2:10 PM ce] in source source source Urine data data data Color YELLOW YELLOW No No No Sep 11 of informa informa informa 2017 Urine tion in tion in tion in 2:10 PM source source source data data data Glucose NEG No No No Sep 11 [Mass/vol informati informati informati 2017 2:10 ume] in on in on in on in PM Urine by source source source Test data data data strip Ketones NEGATIV NEG mg/dL No No Sep 11 E informa informa 2017 [Presen tion in tion in 2:10 PM ce] in source source Urine data data by Automat ed test strip Mucus 1+ NEG No Abnorma No Sep 11 [Presen informa l informa 2016 ce] in tion in tion in 2:10 PM Urine source source sedimen data data t by Light microsc opy Nitrite NEGATIV NEG No No No Sep 11 E informa informa informa 2017 [Presen tion in tion in tion in 2:10 PM ce] in source source source Urine data data data by Test strip pH of 5.0 - 8.5 No Normal No Sep 11 Urine informati informati 2017 2:10 on in on in PM source source data data Protein NEG mg/dL No No Sep 11 [Mass/vol informati informati 2017 2:10 ume] in on in on in PM Urine by source source Automated data data test strip Erythro NONE 0 rbc/hpf No No Sep 11 cytes informa informa 2017 [Presen tion in tion in 2:10 PM ce] in source source Urine data data sedimen t by Light microsc opy Specific 1.005 - No Normal No Sep 11 gravity 1.030 informati informati 2017 2:10 of Urine on in on in PM source source data data Epithel 20-50 0 - 5 #/hpf No No Sep 11 ial informa informa 2017 cells.s tion in tion in 2:10 PM quamous source source data data [Presen ce] in Urine sedimen t by Microsc opy high power field Urobili 0.2 NEG E.U./dL No No Sep 11 nogen informa informa 2017 [Presen tion in tion in 2:10 PM ce] in source source Urine data data by Test strip Leukocy [3 O wbc/hpf No No Sep 11 maria luz wbc/hpf informa informa 2016 [#/volu ; 5 tion in tion in 2:10 PM me] in wbc/hpf source source Urine ] data data Urinalysis dipstick W Reflex Microscopic panel in Urine Observa Value Referen Units Interpr Notes Date tion ce etation Range Appeara SL CLEAR No No No Sep 11 nce of CLOUDY informa informa informa 2017 Urine tion in tion in tion in 2:10 PM source source source data data data Bilirub NEGATIV NEG No No No Sep 11 in E informa informa informa 2017 [Presen tion in tion in tion in 2:10 PM ce] in source source source Urine data data data by Test strip Erythro NEGATIV NEG No No No Sep 11 cytes E informa informa informa 2017 [Presen tion in tion in tion in 2:10 PM ce] in source source source Urine data data data Color YELLOW YELLOW No No No Sep 11 of informa informa informa 2016 Urine tion in tion in tion in 2:10 PM source source source data data data Glucose NEG No No No Sep 11 [Mass/vol informati informati informati 2016 2:10 ume] in on in on in on in PM Urine by source source source Test data data data strip Ketones NEGATIV NEG mg/dL No No Sep 11 E informa informa 2016 [Presen tion in tion in 2:10 PM ce] in source source Urine data data by Automat ed test strip Mucus 1+ NEG No Abnorma No Sep 11 [Presen informa l informa 2016 ce] in tion in tion in 2:10 PM Urine source source sedimen data data t by Light microsc opy Nitrite NEGATIV NEG No No No Sep 11 E informa informa informa 2016 [Presen tion in tion in tion in 2:10 PM ce] in source source source Urine data data data by Test strip pH of 5.0 - 8.5 No Normal No Sep 11 Urine informati informati 2016 2:10 on in on in PM source source data data Protein NEG mg/dL No No Sep 11 [Mass/vol informati informati 2016 2:10 ume] in on in on in PM Urine by source source Automated data data test strip Specific 1.005 - No Normal No Sep 11 gravity 1.030 informati informati 2016 2:10 of Urine on in on in PM source source data data Urobili 0.2 NEG E.U./dL No No Sep 11 nogen informa informa 2016 [Presen tion in tion in 2:10 PM ce] in source source Urine data data by Test strip CBC W Auto Differential panel in Blood Observa Value Referen Units Interpr Notes Date tion ce etation Range Basophils 0 - 0.2 K/MM3 Normal No Sep 11 2016 [#/volume on in 12:10 PM ] in source Blood by data Automated count Basophils 0.1 - 2.0 % Normal No Sep 11 /100 2016 leukocyte on in 12:10 PM s in source Blood by data Automated count Eosinophi 0.0 - 0.4 K/mm3 Normal No Sep 11 ls 2016 [#/volume on in 12:10 PM ] in source Blood by data Automated count Eosinophi 0.1 - % Normal No Sep 11 ls/100 12.0 inform2016 leukocyte on in 12:10 PM s in source Blood by data Automated count Granulocy 1.8 - 7.8 K/mm3 Normal No Sep 11 maria luz inform 2017 [#/volume on in 12:10 PM ] in source Blood by data Automated count Granulocy 37.0 - % Normal No Sep 11 maria luz/100 80.0 informati 2016 leukocyte on in 12:10 PM s in source Blood by data Automated count Hematocri 37.0 - % Normal No Sep 11 t [Volume 47.0 informati 2016 on in 12:10 PM Fraction] source of Blood data Hemoglobi 12.2 - g/dL No No Sep 11 n 16.2 informati informati 2016 [Mass/vol on in on in 12:10 PM ume] in source source Blood data data Lymphocyt 0.7 - 4.5 K/mm3 Normal No Sep 11 es inform2016 [#/volume on in 12:10 PM ] in source Unspecifi data ed specimen by Automated count Lymphocyt 10 - 50.0 % Normal No Sep 11 es inform 2017 [#/volume on in 12:10 PM ] in source Unspecifi data ed specimen by Automated count Erythrocy 27 - 31.2 pg Normal No Sep 11 te mean inform2016 corpuscul on in 12:10 PM ar source hemoglobi data n [Entitic mass] Erythrocy 31.8 - g/dl Normal No Sep 11 te mean 35.4 inform2016 corpuscul on in 12:10 PM ar source hemoglobi data n concentra tion [Mass/vol ume] by Automated count Erythrocy 82.2 - fl Low No Sep 11 te mean 97.8 inform 2017 corpuscul on in 12:10 PM ar volume source [Entitic data volume] by Automated count Monocytes 0.1 - 1.0 K/mm3 Normal No Sep 11 inform2016 [#/volume on in 12:10 PM ] in source Blood by data Automated count Monocytes 1.7 - 9.3 % Normal No Sep 11 / inform 2017 leukocyte on in 12:10 PM s in source Blood by data Automated count Platelet 7.4 - fl Normal No Sep 11 mean 10.4 informati 2016 volume on in 12:10 PM [Entitic source volume] data in Blood by Automated count Platelets 142 - 424 K/mm3 No No Sep 11 informati informati 2016 [#/volume on in on in 12:10 PM ] in source source Blood data data Erythrocy 4.2 - 5.4 M/mm3 Normal No Sep 11 maria luz informati 2016 [#/volume on in 12:10 PM ] in source Amniotic data fluid Erythrocy 11.5 - % Normal No Sep 11 te 17.5 informati 2016 distribut on in 12:10 PM ion width source [Entitic data volume] by Automated count Leukocyte 4.8 - K/MM3 Normal No Sep 11 s 10.8 informati 2017 [#/volume on in 12:10 PM ] in source Blood data Basic metabolic panel in Blood Observa Value Referen Units Interpr Notes Date tion ce etation Range Urea 7 - 18 mg/dL High No Apr 23 nitrogen informati 2016 [Mass/vol on in 10:07 AM ume] in source Serum or data Plasma Calcium 8.5 - mg/dL Normal No Apr 23 [Mass/vol 10.1 informati 2016 ume] in on in 10:07 AM Serum or source Plasma data Chloride 98 - 107 mmoL/L Normal No Apr 23 [Moles/vo informati 2016 lume] in on in 10:07 AM Serum or source Plasma data Carbon 21.0 - mmoL/L Normal No Apr 23 dioxide, 32.0 informati 2016 total on in 10:07 AM [Moles/vo source lume] in data Serum or Plasma Creatinin 0.55 - mg/dL High No Apr 23 e 1.02 informati 2016 [Mass/vol on in 10:07 AM ume] in source Serum or data Plasma Estimated 59- ML/MIN Low REFERENCE Apr 23 RANGE: 2017 glomerula >60 10:07 AM r ML/MIN/1. filtratio 73 SQUARE n rate METERSIf (GF this patient is -A merican, then multiply theresult by 1.210. Glucose 74 - 106 mg/dL High No Apr 23 [Mass/vol informati 2016 ume] in on in 10:07 AM Serum or source Plasma data Potassium 3.5 - 5.1 mmoL/L Normal No Apr 23 informati 2016 [Moles/vo on in 10:07 AM lume] in source Serum or data Plasma Sodium 136 - 145 mmoL/L Normal No Apr 23 [Moles/vo informati 2017 lume] in on in 10:07 AM Serum or source Plasma data Magnesium [Moles/volume] in Unspecified specimen Observa Value Referen Units Interpr Notes Date ce etation Range Magnesium 1.4 - 2.2 mg/dL Normal No Apr 23 informati 2016 [Moles/vo on in 10:07 AM lume] in source Unspecifi data ed specimen Glucose [Mass/volume] in Serum or Plasma --2 hours post dose glucose Observa Value Referen Units Interpr Notes Date ce etation Range Glucose No mg/dL No No Mar 27 [Mass/vol informati informati informati 2017 ume] in on in on in on in 10:40 AM Serum or source source source Plasma data data data --1 hour post dose glucose Glucose NEGATIV No mg/ml No No Mar 27 E informa informa informa 2016 [Presen tion in tion in tion in 10:40 ce] in source source source AM Urine data data data by Test strip Glucose No mg/dL No No Mar 27 [Mass/vol informati informati informati 2016 ume] in on in on in on in 10:40 AM Serum or source source source Plasma data data data --2 hours post 100 g glucose PO Glucose NEGATIV No mg/ml No No Mar 27 E informa informa informa 2016 [Presen tion in tion in tion in 10:40 ce] in source source source AM Urine data data data by Test strip --2 hours post dose glucose Glucose 70 - 110 mg/dL High No Mar 27 [Mass/vol informati 2016 ume] in on in 10:40 AM Serum or source Plasma data --pre 12 hour fast Glucose NEGATIV No mg/dL No No Mar 27 E informa informa informa 2016 [Presen tion in tion in tion in 10:40 ce] in source source source AM Urine data data data by Automat ed test strip Hemoglobin A1c in Blood Observa Value Referen Units Interpr Notes Date ce etation Range Hemoglo 6.7 0.0 - % Normal < 6% Mar 27 bin A1c 7.0 NON-MILAN 2017 in BETIC 10:40 Blood LEVEL< AM 7% CONTROL LED DIABETI C LEVEL> 8% POORLY CONTROL LED DIABETI C LEVEL Comprehensive metabolic 2000 panel in Serum or Plasma Observa Value Referen Units Interpr Notes Date tion ce etation Range Albumin/G 1.1 - 1.8 No Low No Mar 27 lobulin informati informati 2016 8:02 [Mass on in on in AM ratio] in source source Serum or data data Plasma Albumin 3.4 - 5.0 gm/dL Normal No Mar 27 [Mass/vol informati 2016 8:02 ume] in on in AM Serum or source Plasma data Alkaline 46 - 116 U/L Normal No Mar 27 phosphata informati 2016 8:02 se on in AM [Enzymati source c data activity/ volume] in Serum or Plasma Bilirubin 0.2 - 1.0 mg/dL Normal No Mar 27 .total informati 2016 8:02 [Mass/vol on in AM ume] in source Serum or data Plasma Urea 7 - 18 mg/dL Normal No Mar 27 nitrogen informati 2016 8:02 [Mass/vol on in AM ume] in source Serum or data Plasma Calcium 8.5 - mg/dL Normal No Mar 27 [Mass/vol 10.1 informati 2016 8:02 ume] in on in AM Serum or source Plasma data Chloride 98 - 107 mmoL/L Normal No Mar 27 [Moles/vo informati 2016 8:02 lume] in on in AM Serum or source Plasma data Carbon 21.0 - mmoL/L Normal No Mar 27 dioxide, 32.0 informati 2016 8:02 total on in AM [Moles/vo source lume] in data Serum or Plasma Creatinin 0.55 - mg/dL High No Mar 27 e 1.02 informati 2016 8:02 [Mass/vol on in AM ume] in source Serum or data Plasma Estimated 59- ML/MIN Low REFERENCE Mar 27 RANGE: 2017 8:02 glomerula >60 AM r ML/MIN/1. filtratio 73 SQUARE n rate METERSIf (GF this patient is -A merican, then multiply theresult by 1.210. Globulin 1.3 - 3.2 gm/dL High No Mar 27 [Mass/vol informati 2016 8:02 ume] in on in AM Serum source data Glucose 74 - 106 mg/dL High No Mar 27 [Mass/vol informati 2016 8:02 ume] in on in AM Serum or source Plasma data Potassium 3.5 - 5.1 mmoL/L Normal No Mar 27 informati 2016 8:02 [Moles/vo on in AM lume] in source Serum or data Plasma Sodium 136 - 145 mmoL/L Normal No Mar 27 [Moles/vo informati 2016 8:02 lume] in on in AM Serum or source Plasma data Aspartate 15 - 37 U/L High No Mar 27 informati 2017 8:02 aminotran on in AM sferase source [Enzymati data c activity/ volume] in Serum or Plasma Alanine 12 - 78 U/L High No Mar 27 aminotran informati 2016 8:02 sferase on in AM [Enzymati source c data activity/ volume] in Serum or Plasma Protein 6.4 - 8.2 gm/dL Normal No Mar 27 [Mass/vol informati 2016 8:02 ume] in on in AM Serum or source Plasma data Parathyrin.intact [Mass/volume] in Serum or Plasma Observa Value Referen Units Interpr Notes Date tion ce etation Range Parathyri 15 - 65 pg/mL No Mar 27 n.intact informati at: CB 2017 8:02 [Mass/vol on in - [facility] AM ume] in source Serum or data [place] [id number] Plasma 0 [place], [place] [id number] Administrative Operations Coordinator: Delmar Fontanez PhD, Phone: [phone] Basic metabolic panel in Blood Observa Value Referen Units Interpr Notes Date tion ce etation Range Urea 7 - 18 mg/dL Normal No Mar 21 nitrogen informati 2016 9:54 [Mass/vol on in AM ume] in source Serum or data Plasma Calcium 8.5 - mg/dL Normal No Mar 21 [Mass/vol 10.1 informati 2016 9:54 ume] in on in AM Serum or source Plasma data Chloride 98 - 107 mmoL/L Normal No Mar 21 [Moles/vo informati 2016 9:54 lume] in on in AM Serum or source Plasma data Carbon 21.0 - mmoL/L Normal No Mar 21 dioxide, 32.0 informati 2016 9:54 total on in AM [Moles/vo source lume] in data Serum or Plasma Creatinin 0.55 - mg/dL High No Mar 21 e 1.02 informati 2016 9:54 [Mass/vol on in AM ume] in source Serum or data Plasma Estimated 59- ML/MIN Low REFERENCE Mar 21 RANGE: 2017 9:54 glomerula >60 AM r ML/MIN/1. filtratio 73 SQUARE n rate METERSIf (GF this patient is -A merican, then multiply theresult by 1.210. Glucose 74 - 106 mg/dL High No Mar 21 [Mass/vol informati 2016 9:54 ume] in on in AM Serum or source Plasma data Potassium 3.5 - 5.1 mmoL/L Normal No Mar 21 informati 2016 9:54 [Moles/vo on in AM lume] in source Serum or data Plasma Sodium 136 - 145 mmoL/L Normal No Mar 21 [Moles/vo informati 2016 9:54 lume] in on in AM Serum or source Plasma data Natriutietic peptide B [Mass/volume] in Serum or Plasma Observa Value Referen Units Interpr Notes Date tion ce etation Range Natriutie 0 - 100 pg/mL Normal No Mar 21 tic informati 2016 9:54 peptide B on in AM source [Mass/vol data ume] in Serum or Plasma Magnesium [Moles/volume] in Unspecified specimen Observa Value Referen Units Interpr Notes Date tion ce etation Range Magnesium 1.4 - 2.2 mg/dL Normal No Mar 21 informati 2016 9:54 [Moles/vo on in AM lume] in source Unspecifi data ed specimen Basic metabolic panel in Blood Observa Value Referen Units Interpr Notes Date tion ce etation Range Urea 7 - 18 mg/dL Normal No Mar 14 nitrogen informati 2017 6:05 [Mass/vol on in AM ume] in source Serum or data Plasma Calcium 8.5 - mg/dL Normal No Mar 14 [Mass/vol 10.1 informati 2016 6:05 ume] in on in AM Serum or source Plasma data Chloride 98 - 107 mmoL/L High No Mar 14 [Moles/vo informati 2017 6:05 lume] in on in AM Serum or source Plasma data Carbon 21.0 - mmoL/L Normal No Mar 14 dioxide, 32.0 informati 2017 6:05 total on in AM [Moles/vo source lume] in data Serum or Plasma Creatinin 0.55 - mg/dL Normal No Mar 14 e 1.02 informati 2017 6:05 [Mass/vol on in AM ume] in source Serum or data Plasma Creatinin 50 - 200 ML/MIN Normal No Mar 14 e renal informati 2017 6:05 clearance on in AM source predicted data by Cockcroft -Gault formula Estimated 59- ML/MIN No REFERENCE Mar 14 informati RANGE: 2017 6:05 glomerula on in >60 AM r source ML/MIN/1. filtratio data 73 SQUARE n rate METERSIf (GF this patient is -A merican, then multiply theresult by 1.210. Glucose 74 - 106 mg/dL High No Mar 14 [Mass/vol informati 2016 6:05 ume] in on in AM Serum or source Plasma data Potassium 3.5 - 5.1 mmoL/L Normal No Mar 14 informati 2016 6:05 [Moles/vo on in AM lume] in source Serum or data Plasma Sodium 136 - 145 mmoL/L Normal No Mar 14 [Moles/vo informati 2016 6:05 lume] in on in AM Serum or source Plasma data CBC W Auto Differential panel in Blood Observa Value Referen Units Interpr Notes Date tion ce etation Range Basophils 0 - 0.2 K/MM3 Normal No Mar 14 informati 2016 6:05 [#/volume on in AM ] in source Blood by data Automated count Basophils 0.1 - 2.0 % Normal No Feb 30 /100 informati 2017 6:05 leukocyte on in AM s in source Blood by data Automated count Eosinophi 0.0 - 0.4 K/mm3 Normal No Mar 14 ls informati 2016 6:05 [#/volume on in AM ] in source Blood by data Automated count Eosinophi 0.1 - % Normal No Mar 14 ls/100 12.0 informati 2016 6:05 leukocyte on in AM s in source Blood by data Automated count Granulocy 1.8 - 7.8 K/mm3 Normal No Mar 14 maria luz informati 2017 6:05 [#/volume on in AM ] in source Blood by data Automated count Granulocy 37.0 - % Normal No Mar 14 maria luz/100 80.0 informati 2017 6:05 leukocyte on in AM s in source Blood by data Automated count Hematocri 37.0 - % Low No Mar 14 t [Volume 47.0 informati 2017 6:05 on in AM Fraction] source of Blood data Hemoglobi 12.2 - g/dL Low No Mar 14 n 16.2 informati 2016 6:05 [Mass/vol on in AM ume] in source Blood data Lymphocyt 0.7 - 4.5 K/mm3 Normal No Mar 14 es informati 2017 6:05 [#/volume on in AM ] in source Unspecifi data ed specimen by Automated count Lymphocyt 10 - 50.0 % Normal No Mar 14 es informati 2017 6:05 [#/volume on in AM ] in source Unspecifi data ed specimen by Automated count Erythrocy 27 - 31.2 pg Normal No Mar 14 te mean informati 2016 6:05 corpuscul on in AM ar source hemoglobi data n [Entitic mass] Erythrocy 31.8 - g/dl Normal No Mar 14 te mean 35.4 informati 2017 6:05 corpuscul on in AM ar source hemoglobi data n concentra tion [Mass/vol ume] by Automated count Erythrocy 82.2 - fl Normal No Mar 14 te mean 97.8 informati 2017 6:05 corpuscul on in AM ar volume source [Entitic data volume] by Automated count Monocytes 0.1 - 1.0 K/mm3 Normal No Mar 14 informati 2017 6:05 [#/volume on in AM ] in source Blood by data Automated count Monocytes 1.7 - 9.3 % Normal No Mar 14 /100 informati 2017 6:05 leukocyte on in AM s in source Blood by data Automated count Platelet 7.4 - fl Normal No Mar 14 mean 10.4 informati 2017 6:05 volume on in AM [Entitic source volume] data in Blood by Automated count Platelets 142 - 424 K/mm3 Low No Mar 14 informati 2017 6:05 [#/volume on in AM ] in source Blood data Erythrocy 4.2 - 5.4 M/mm3 Low No Mar 14 maria luz informati 2017 6:05 [#/volume on in AM ] in source Amniotic data fluid Erythrocy 11.5 - % Normal No Mar 14 te 17.5 informati 2017 6:05 distribut on in AM ion width source [Entitic data volume] by Automated count Leukocyte 4.8 - K/MM3 Normal No Mar 14 s 10.8 informati 2017 6:05 [#/volume on in AM ] in source Blood data CBC W Auto Differential panel in Blood Observa Value Referen Units Interpr Notes Date tion ce etation Range Basophils 0 - 0.2 K/MM3 Normal No Mar 13 informati 2017 3:40 [#/volume on in PM ] in source Blood by data Automated count Basophils 0.1 - 2.0 % Normal No Mar 13 /100 informati 2016 3:40 leukocyte on in PM s in source Blood by data Automated count Eosinophi 0.0 - 0.4 K/mm3 Normal No Mar 13 ls informati 2016 3:40 [#/volume on in PM ] in source Blood by data Automated count Eosinophi 0.1 - % Normal No Mar 13 ls/100 12.0 informati 2016 3:40 leukocyte on in PM s in source Blood by data Automated count Granulocy 1.8 - 7.8 K/mm3 Normal No Mar 13 maria luz informati 2016 3:40 [#/volume on in PM ] in source Blood by data Automated count Granulocy 37.0 - % Normal No Mar 13 maria luz/100 80.0 informati 2016 3:40 leukocyte on in PM s in source Blood by data Automated count Hematocri 37.0 - % Normal No Mar 13 t [Volume 47.0 informati 2016 3:40 on in PM Fraction] source of Blood data Hemoglobi 12.2 - g/dL Normal No Mar 13 n 16.2 informati 2016 3:40 [Mass/vol on in PM ume] in source Blood data Lymphocyt 0.7 - 4.5 K/mm3 Normal No Mar 13 es informati 2016 3:40 [#/volume on in PM ] in source Unspecifi data ed specimen by Automated count Lymphocyt 10 - 50.0 % Normal No Mar 13 es informati 2016 3:40 [#/volume on in PM ] in source Unspecifi data ed specimen by Automated count Erythrocy 27 - 31.2 pg Normal No Mar 13 te mean informati 2016 3:40 corpuscul on in PM ar source hemoglobi data n [Entitic mass] Erythrocy 31.8 - g/dl Normal No Mar 13 te mean 35.4 informati 2016 3:40 corpuscul on in PM ar source hemoglobi data n concentra tion [Mass/vol ume] by Automated count Erythrocy 82.2 - fl Low No Mar 13 te mean 97.8 informati 2016 3:40 corpuscul on in PM ar volume source [Entitic data volume] by Automated count Monocytes 0.1 - 1.0 K/mm3 Normal No Mar 13 informati 2016 3:40 [#/volume on in PM ] in source Blood by data Automated count Monocytes 1.7 - 9.3 % Normal No Mar 13 /100 informati 2016 3:40 leukocyte on in PM s in source Blood by data Automated count Platelet 7.4 - fl Normal No Mar 13 mean 10.4 informati 2016 3:40 volume on in PM [Entitic source volume] data in Blood by Automated count Platelets 142 - 424 K/mm3 Normal No Mar 13 informati 2016 3:40 [#/volume on in PM ] in source Blood data Erythrocy 4.2 - 5.4 M/mm3 Normal No Mar 13 maria luz informati 2016 3:40 [#/volume on in PM ] in source Amniotic data fluid Erythrocy 11.5 - % Normal Mar 13 te 17.5 informati 2016 3:40 distribut on in PM ion width source [Entitic data volume] by Automated count Leukocyte 4.8 - K/MM3 Normal No Mar 13 s 10.8 informati 2016 3:40 [#/volume on in PM ] in source Blood data Free T4 & TSH panel in Serum or Plasma Observa Value Referen Units Interpr Notes Date tion ce etation Range Thyroxine 5.93 - ug/dl Normal Mar 10 (T4) 13.13 informati 2016 8:10 free on in AM index in source Serum or data Plasma Triiodoth 31 - 39 % Low No Mar 10 yronine informati 2016 8:10 (T3) on in AM resin source uptake in data Serum or Plasma Thyroxine 4.7 - ug/dl Normal Mar 10 (T4) 13.3 informati 2016 8:10 [Mass/vol on in AM ume] in source Serum or data Plasma Thyrotrop 0.358 - uIU/ml High No Mar 10 in 3.740 informati 2016 8:10 [Units/vo on in AM lume] in source Serum or data Plasma INR in Blood by Coagulation assay Observa Value Referen Units Interpr Notes Date tion ce etation Range IS PATIENT ON ANTICOAGULANTS? N INR in 0.9 - 1.1 No Normal INDICATIO Mar 10 Blood by informati N 2016 8:10 Coagulati on in AM on assay source INR data RANGETHER APY FOR DVT, PE, ATRIAL FIB; 2.0 - 3.0PROPHY LAXIS FOR VTETHERAP Y FOR MECHANICA L HEART 2.5 - 3.5VALVE; PREVENTIO N OF SYSTEMICE MBOLISM SECONDARY TO AMI Prothromb 9.4 - SECONDS Normal No Mar 10 in time 11.8 informati 2017 8:10 (PT) in on in AM Platelet source poor data plasma by Coagulati on assay Magnesium [Moles/volume] in Unspecified specimen Observa Value Referen Units Interpr Notes Date tion ce etation Range Magnesium 1.4 - 2.2 mg/dL Normal No Mar 10 informati 2016 8:10 [Moles/vo on in AM lume] in source Unspecifi data ed specimen CBC W Auto Differential panel in Blood Observa Value Referen Units Interpr Notes Date tion ce etation Range Basophils 0 - 0.2 K/MM3 Normal No Mar 10 informati 2016 8:10 [#/volume on in AM ] in source Blood by data Automated count Basophils 0.1 - 2.0 % Normal No Mar 10 /100 informati 2017 8:10 leukocyte on in AM s in source Blood by data Automated count Eosinophi 0.0 - 0.4 K/mm3 Normal No Mar 10 ls informati 2016 8:10 [#/volume on in AM ] in source Blood by data Automated count Eosinophi 0.1 - % Normal No Mar 10 ls/100 12.0 informati 2016 8:10 leukocyte on in AM s in source Blood by data Automated count Granulocy 1.8 - 7.8 K/mm3 Normal No Mar 10 maria luz informati 2016 8:10 [#/volume on in AM ] in source Blood by data Automated count Granulocy 37.0 - % Normal No Mar 10 maria luz/100 80.0 informati 2016 8:10 leukocyte on in AM s in source Blood by data Automated count Hematocri 37.0 - % Normal No Mar 10 t [Volume 47.0 informati 2016 8:10 on in AM Fraction] source of Blood data Hemoglobi 12.2 - g/dL Normal No Mar 10 n 16.2 informati 2016 8:10 [Mass/vol on in AM ume] in source Blood data Lymphocyt 0.7 - 4.5 K/mm3 Normal No Mar 10 es informati 2016 8:10 [#/volume on in AM ] in source Unspecifi data ed specimen by Automated count Lymphocyt 10 - 50.0 % Normal No Mar 10 es informati 2016 8:10 [#/volume on in AM ] in source Unspecifi data ed specimen by Automated count Erythrocy 27 - 31.2 pg Normal No Mar 10 te mean informati 2016 8:10 corpuscul on in AM ar source hemoglobi data n [Entitic mass] Erythrocy 31.8 - g/dl Normal No Mar 10 te mean 35.4 informati 2016 8:10 corpuscul on in AM ar source hemoglobi data n concentra tion [Mass/vol ume] by Automated count Erythrocy 82.2 - fl Low No Mar 10 te mean 97.8 informati 2016 8:10 corpuscul on in AM ar volume source [Entitic data volume] by Automated count Monocytes 0.1 - 1.0 K/mm3 Normal No Mar 10 informati 2016 8:10 [#/volume on in AM ] in source Blood by data Automated count Monocytes 1.7 - 9.3 % Normal No Mar 10 /100 informati 2016 8:10 leukocyte on in AM s in source Blood by data Automated count Platelet 7.4 - fl Normal No Mar 10 mean 10.4 informati 2016 8:10 volume on in AM [Entitic source volume] data in Blood by Automated count Platelets 142 - 424 K/mm3 Normal No Mar 10 informati 2016 8:10 [#/volume on in AM ] in source Blood data Erythrocy 4.2 - 5.4 M/mm3 Normal No Mar 10 maria luz informati 2016 8:10 [#/volume on in AM ] in source Amniotic data fluid Erythrocy 11.5 - % Normal No Mar 10 te 17.5 informati 2016 8:10 distribut on in AM ion width source [Entitic data volume] by Automated count Leukocyte 4.8 - K/MM3 Normal No Mar 10 s 10.8 informati 2016 8:10 [#/volume on in AM ] in source Blood data MM MOBILE MAMMO DIGITAL SCREEN W CAD YANA Observa Value Referen Units Interpr Notes Date tion ce etation Range Procedu No No No No Apr 01 re:MM informa informa informa informa 2012 MOBILE tion in tion in tion in tion in 2:40 PM MAMMO source source source source DIGITAL data data data data SCREEN W CAD YANA\.br \Reason for exam: screeni ng (asympt omatic) .\.br\M M MOBILE MAMMO DIGITAL SCREEN W CAD YANA\.br \Bilate ral CC and MLO view(s) were taken.\ .br\The re are scatter ed fibrogl andular densiti es. No suspici ous\.br \calcif ication s.\.br\ IMPRESS ION: Negativ e (ACR-Ca tegory- 1)\.br\ RECOMME NDATION :\.br\R outine screeni ng mammogr am in 1 year.\. br\* The patient with a palpabl e abnorma lity, unexpla ined by breast\ .br\jeferson ging, should be managed on clinica l basis by the attendi ng physici an.\.br \* Breast imaging has a false negativ e rate of 15%.\.b r\* The patient was notifie d by mail of the results of this examina tion.\. br\*The patient 's informa tion was entered into a [employer] r system with a\.br\t arget\. br\due date for the next mammogr am.\.br \The mammogr am was reviewe d by a Radiolo gist and CAD.
--- OUTSIDE RECORDS SUMMARY | 2017-06-27 16:15 | External Medical Summary Rpt ---
[...] AM ume] in source Serum or data [address] [id number] Plasma 0 [place], [place] [id number] [employer] Sales Representative: Delmar Fontanez PhD, Phone: [phone] Basic metabolic panel in Blood Observa [...] 's informa tion was entered into a myParcel[employer]ivery[employer] r system with a\.br\t arget\. br\due date for the next mammogr am.\.br \The mammogr am was reviewe d by a Radiolo gist and CAD.
== END 2017-06-21 22:27 | disposition home or self-care (01) ==
LOC: ER 19:05
PROVIDERS: Emergency Medicine
DX: R07.89 Other chest pain (principal); R51 Headache; I27.20 Pulmonary hypertension, unspecified; J45.909 Unspecified asthma, uncomplicated; E11.9 Type 2 diabetes mellitus without complications; Z87.891 Personal history of nicotine dependence

== ENCOUNTER 2017-07-26 09:05 | Observation (INO) | payer OTHER ==
[~2017-07-26] VITALS: Ht 165.1 cm; Wt 106.2 kg
[2017-07-26 09:07] VITALS: BP 129/67
--- OUTSIDE RECORDS SUMMARY | 2017-07-26 09:11 | External Medical Summary Rpt | CCD ---
Author Author , JENNIFER Organization JENNIFER Address Unknown Phone [email or web address] Purpose Continuity of Care Document - 04-15-2017 through 2016 Problems Code Diagnosis DOS Provider Status R00.2 Palpitation 05-28-2017 s I49.3 Ventricular 05-28-2017 premature depolarizat ion I50.9 Heart 05-28-2017 failure, unspecified I51.9 Heart 05-28-2017 disease, unspecified E03.9 HYPOTHYROID ISM, UNSPECIFIED I49.9 CARDIAC ARRHYTHMIA, UNSPECIFIED J01.90 ACUTE SINUSITIS, UNSPECIFIED J18.9 PNEUMONIA, UNSPECIFIED ORGANISM J40 BRONCHITIS, NOT SPECIFIED ACUTE OR CHRONIC J44.9 CHRONIC OBSTRUCTIVE PULMONARY DISEASE, UNSPECIFIED J45.901 UNSPECIFIED ASTHMA WITH (ACUTE) EXACERBATIO N J45.909 UNSPECIFIED ASTHMA, UNCOMPLICAT ED K52.9 NONINFECTIV E GASTROENTER ITIS AND COLITIS, UNSPECIFIED K64.4 RESIDUAL HEMORRHOIDA L SKIN TAGS M54.10 RADICULOPAT HY, SITE UNSPECIFIED R00.8 OTHER ABNORMALITI ES OF HEART BEAT R07.89 OTHER CHEST PAIN R07.9 CHEST PAIN, UNSPECIFIED R09.1 PLEURISY R10.9 UNSPECIFIED ABDOMINAL PAIN R11.10 VOMITING, UNSPECIFIED R51 HEADACHE R73.9 HYPERGLYCEM IA, UNSPECIFIED T88.7XXA UNSP ADVERSE EFFECT OF DRUG OR MEDICAMENT, INIT ENCNTR Results Labs Lab Lab Date Result Refere Interp Status Commen Order Detail nces retati t Range on Arterial blood oxygen saturation measure (07-10-2017 09:03) Arteria = 74.8 90-100 complet l blood 017 % ed oxygen 09:03 saturat ion measure VENOUS O2 SAT FOOD TESTER (07-10-2017 09:03) VENOUS 73.2 % 75-80 complet O2 SAT 017 ed CATH 09:03 LAB Basic metabolic panel (06-30-2017 13:33) Serum = 19 7-18 complet or 017 mg/dL ed plasma 13:33 urea nitroge n measure men Serum = 9.7 8.5-10. complet or 017 mg/dL 1 ed plasma 13:33 calcium measure ment (mas Serum = 99 98-107 complet or 017 mmoL/L ed plasma 13:33 chlorid e measure ment (mo Carbon = 29 21.0-32 complet dioxide 017 mmoL/L .0 ed 13:33 measure ment Serum 2 = 1.1 0.55-1. complet or 017 mg/dL 02 ed plasma 13:33 creatin ine measure ment ( Estimat = 54 59- complet ed 017 ML/MIN ed glomeru 13:33 lar filtrat ion rate (GF Comment: REFERENCE RANGE: >60 ML/MIN/1.73 SQUARE METERS Comment: If this patient is -Nigerien, then multiply the Comment: result by 1.210. Serum = 158 74-106 complet or 017 mg/dL ed plasma 13:33 glucose measure ment (mas Serum = 3.9 3.5-5.1 complet potassi 017 mmoL/L ed um 13:33 measure ment Serum = 136 136-145 complet sodium 017 mmoL/L ed measure 13:33 ment Magnesium measurement (06-30-2017 13:33) Magnesi = 1.7 1.4-2.2 complet um 017 mg/dL ed measure 13:33 ment Glucose capillary blood glucometer (06-21-2017 19:51) Glucose = 271 70-110 complet 017 mg/dl ed capilla 19:[address] CBC w auto diff (06-21-2017 19:10) Automat = 0.0 0-0.2 complet ed 017 K/MM3 ed blood 19:10 basophi l count (count/ vo Baso % = 0.2 % 0.1-2.0 complet 017 ed 19:10 Automat = 0.0 0.0-0.4 complet ed 017 K/mm3 ed blood 19:10 eosinop hil count Automat = 0.1 % 0.1-12. complet ed 017 0 ed blood 19:10 eosinop hils/10 0 leukocy t Blood = 9.6 1.8-7.8 complet granulo 017 K/mm3 ed cytes 19:10 automat ed count (numb Granulo = 80.3 37.0-80 complet cyte 017 % .0 ed percent 19:10 age Blood = 43.0 37.0-47 complet hematoc 017 % .0 ed rit 19:10 (volume fractio n) Blood = 14.1 12.2-16 complet hemoglo 017 g/dL .2 ed bin 19:10 measure ment (mass/v olum Absolut = 1.7 0.7-4.5 complet e 017 K/mm3 ed lymphoc 19:10 yte count Lymphoc = 14.0 10-50.0 complet yte 017 % ed count, 19:10 blood, automat ed Mean = 28.0 27-31.2 complet corpusc 017 pg ed ular 19:10 hemoglo bin (MCH) determ Automat = 32.8 31.8-35 complet ed 017 g/dl .4 ed erythro 19:10 cyte mean corpusc ular h Automat = 85.3 82.2-97 complet ed 017 fl .8 ed erythro 19:10 cyte mean corpusc ular v Absolut = 0.6 0.1-1.0 complet e 017 K/mm3 ed monocyt 19:10 e count Martin % = 5.4 % 1.7-9.3 complet 017 ed 19:10 Automat = 8.2 7.4-10. complet ed 017 fl 4 ed blood 19:10 platele t mean volume gurdeep Blood = 243 142-424 complet platele 017 K/mm3 ed t count 19:10 Red = 5.05 4.2-5.4 complet blood 017 M/mm3 ed cell 19:10 count Automat = 14.7 11.5-17 complet ed 017 % .5 ed erythro 19:10 cyte distrib ution width Blood = 11.9 4.8-10. complet leukocy 017 K/MM3 8 ed maria luz 19:10 count (number /volume ) Lipase measurement (06-21-2017 19:10) Lipase = 179 73-393 complet measure 017 U/L ed ment 19:10 Comprehensive metabolic panel (06-21-2017 19:10) Protein = 8.3 6.4-8.2 complet total 017 gm/dL ed ser/trudy 19:10 s ALT = 57 12-78 complet (SGPT) 017 U/L ed ser/trudy 19:10 s Serum = 1.0 1.1-1.8 complet or 017 ed plasma 19:10 albumin /globul in mass ra Serum = 4.1 3.4-5.0 complet or 017 gm/dL ed plasma 19:10 albumin measure ment (mas Serum = 107 46-116 complet or 017 U/L ed plasma 19:10 alkalin e phospha tase gurdeep Serum = 0.5 0.2-1.0 complet or 017 mg/dL ed plasma 19:10 total bilirub in measure m Serum = 33 7-18 complet or 017 mg/dL ed plasma 19:10 urea nitroge n measure men Serum = 9.0 8.5-10. complet or 017 mg/dL 1 ed plasma 19:10 calcium measure ment (mas Serum = 96 98-107 complet or 017 mmoL/L ed plasma 19:10 chlorid e measure ment (mo Carbon = 28 21.0-32 complet dioxide 017 mmoL/L .0 ed 19:10 measure ment Serum = 1.5 0.55-1. complet or 017 mg/dL 02 ed plasma 19:10 creatin ine measure ment ( Estimat = 82 50-200 complet ion of 017 ML/MIN ed creatin 19:10 ine renal clearan ce Estimat = 38 59- complet ed 017 ML/MIN ed glomeru 19:10 lar filtrat ion rate (GF Comment: REFERENCE RANGE: >60 ML/MIN/1.73 SQUARE METERS Comment: If this patient is -[place]ien, then multiply the Comment: result by 1.210. Serum = 4.2 1.3-3.2 complet globuli 017 gm/dL ed n 19:10 measure ment (mass/v olume) Serum = 297 74-106 complet or 017 mg/dL ed plasma 19:10 glucose measure ment (mas Serum = 3.3 3.5-5.1 complet potassi 017 mmoL/L ed um 19:10 measure ment Serum = 134 136-145 complet sodium 017 mmoL/L ed measure 19:10 ment Serum = 21 15-37 complet or 017 U/L ed plasma 19:10 asparta te aminotr ansfera Cardiac enzymes (06-21-2017 19:10) Serum = 0.8 0-4.0 complet or 017 U/L ed plasma 19:10 creatin e kinase MB (CK-M Serum = 0.5 0.0-3.6 complet or 017 ng/mL ed plasma 19:10 creatin e kinase MB measu Serum = 59 26-192 complet or 017 U/L ed plasma 19:10 creatin e kinase measure m Serum < 0.02 0.00-0. complet or 017 ng/mL 06 ed plasma 19:10 troponi n i.cardi ac measu THYROID PANEL 2 (06-21-2017 19:10) Serum = 5.6 5.93-13 complet or 017 ug/dl .13 ed plasma 19:10 thyroxi ne (T4) free inde T3 = 34 % 31-39 complet uptake 017 ed 19:10 Thyroxi = 6.7 4.7-13. complet ne 017 ug/dl 3 ed 19:10 Serum = 0.84 0.358-3 complet or 017 uIU/ml .740 ed plasma 19:10 thyroid stimula ting horm CRP SerPl-mCnc (04-15-2017 14:24) CRP 0.4 0-0.9 [...]
--- OUTSIDE RECORDS SUMMARY | 2017-07-26 09:11 | External Medical Summary Rpt | CCD ---
Author Author , JENNIFER Organization JENNIFER Address Unknown Phone [email or web address] Purpose Continuity of Care Document - 04-15-2017 [...] 09:03 saturat ion measure VENOUS O2 SAT PILOT STEAM YACHT (07-10-2017 09:03) VENOUS 73.2 % 75-80 complet [...] SQUARE METERS Comment: If this patient is -Samoan, then multiply the Comment: result by 1.210. [...] 017 K/mm3 ed monocyt 19:10 e count [place] % = 5.4 % 1.7-9.3 complet 017 [...] SQUARE METERS Comment: If this patient is -Samoan, then multiply the Comment: result by 1.210. [...]
[2017-07-26] MEDS ORDERED: LYRICA 100 MG100 MG PO (09:12)
--- OUTSIDE RECORDS SUMMARY | 2017-07-26 09:12 | External Medical Summary Rpt | CCD ---
Author Author , JENNIFER RODRIGUEZ Address Unknown Phone [email or web address] Immunization Name Date Rout CVX Reac Dose Comm Prov Is Faci e tion ent ider Refu lity Give sed n PCV1 11-0 Intr 133 0.5 Hist GSHA No GSHA 3 2-20 amus mL oric NE NE 17 cula al r Info rmat ion - Sour ce Unsp ecif ied
--- OUTSIDE RECORDS SUMMARY | 2017-07-26 09:12 | External Medical Summary Rpt | CCD ---
Author Author , JENNIFER RODRIGUEZ Address Unknown Phone [email or web address] Immunization Name Date Rout CVX Reac Dose Comm Prov Is Faci e tion ent ider Refu lity Give sed n PCV1 11-0 Intr 133 0.5 Hist GSHA No GSHA 3 2-20 amus mL oric NE NE 17 cula al r Info rmat ion - Sour ce Unsp ecif ied
[2017-07-26 09:32] LABS: HEMOGLOBIN 12.7 g/dL (12.2-16.2); LYMPH # 0.9 K/mm3 (0.7-4.5); LYMPH % 9.7 % (10-50.0)
--- NOTE | 2017-07-26 10:04 | Emergency Room Report ---
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 N Clinical Suspician of Infection? N Mental Status: 1 - Regular (Normal Baseline) Sepsis Risk:Low Sepsis Risk Have you (or family members/close friends) recently traveled outside the [place]? N If Yes, where/when: Have you had exposure to infectious disease within the past month? N TB? Other? 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 Last night, She developed vomiting x 9 followed by diarrhea 6. She is experiencing midabdominal cramps of the symptoms. She denies seeing hematemesis or melanotic stool. She has no coffee-ground emesis. She denies having chest pain shortness of breath palpitations. She denies having flank pain or lower extremity pain. She finished her shift and came to the ED because she was getting weak. She urinated multiple times yesterday. Source patient, RN notes reviewed, family Exam Limitations no limitations ALLERGIES Coded Allergies: No Known Allergies (03/10/17) Home Medications Active Scripts Furosemide (Furosemide 40MG) 40 MG PO DAILY #30 TAB Prov: 03/15/17 Spironolactone (Aldactone) 25 MG PO DAILY #30 TAB Prov: 03/15/17 Metoprolol Succinate 25 MG PO DAILY #30 Prov: 03/15/17 Reported Medications DULOXETINE HCL (Duloxetine Hydrochloride) 20 MG PO DAILY #60 Zolpidem Tartrate (Ambien 10MG) 10 MG PO QHS PRN SLEEP ALBUTEROL-IPRATROPIUM (Iprat-Albut 0.5-3(2.5) MG/3 Ml) 3 ML IH Q2HP PRN BREATHING Albuterol (Albuterol-Hfa Inhaler) 1 PUFF IH PRN PRN BREATHING OMEPRAZOLE MAGNESIUM (Prilosec 20MG) 20 MG PO DAILY CHOLECALCIFEROL (VITAMIN D3) (Vitamin D) 1,000 IUNITS PO DAILY Levothyroxine Sodium (Levothyroxine 0.088MG) 0.088 MG PO DAILY #30 Metformin HCl (Metformin) 500 MG PO BID #60 Pregabalin (Lyrica 100Mg) 75 MG PO Q8 History Medical History General CAD? No Angina: Yes SC: No Hypertension? No Hyperlipidemia? No CHF? No DVT? No PE? No COPD? No Asthma? Yes Anemia? No GERD? No Gastric ulcers? No GI Bleed? No Hernia? No Thyroid Problems? Yes Hypothyroidism? Yes CVA? No Seizures? No Diabetes? Yes Insulin Dependent: No Insulin Pump: No Home FSBS? No Renal Insuffiency? No End Stage Renal Disease? No UTI? Yes Stones? No BPH? No GB Disease: Yes Nephritic Syndrome? No Asplenia? No Hepatitis? No Sickle Cell Disease? No Arthritis? No Migraines? No Cataracts? No Glaucoma? No MRSA? Yes HIV? No TB? No Anxiety? No Depression? No Cancer? No More? 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 Respiratory no symptoms reported Cardiovascular no symptoms reported Gastrointestinal see HPI, constipation, diarrhea, nausea, vomiting Genitourinary no symptoms reported. Musculoskeletal no symptoms reported Skin no symptoms reported Psychiatric/Neurological no symptoms reported Physical Exam Vital Signs Vital Signs Date Time Temp Pulse Resp B/P Pulse O2 O2 Flow FiO2 Ox Delivery Rate 07/26 1058 18 07/26 1029 82 16 108/64 99 07/26 0907 98.9 92 16 129/67 98 - WBC >12,000 or <4,000 or 10% bands? 2 or more SIRS Criteria Met? B/P:129/67 MAP:87 Creatinine >2.0? UA output<0.5ml/kg/hr for 2 hrs? Platelet count >100,000? Lactate >2.0mmol/1? INR >1.2 or PTT > than 60 sec? Evidence of Organ Dysfunction? Provider documented clinical suspician of infection? N Sepsis Criteria Count: 1 Sepsis Risk: Low Sepsis Risk General Appearance normal appearance, WD/WN Eye Exam - bilateral eye normal exam, bilateral eye PERRL, bilateral eye EOMI Ear, Nose, Throat hearing grossly normal, normal ENT inspection Neck normal inspection, non-tender, supple, full range of motion Respiratory Status Yes: trachea midline, chest symmetrical, non tender chest. No: respiratory distress. Lung Sounds bilateral: normal breath sounds, lungs clear. Cardiovascular normal exam, regular rate/rhythm, no peripheral edema, no gallop, no JVD, no murmur, no rub, normal peripheral pulses Peripheral Pulses Pulses normal Yes Gastrointestinal normal bowel sounds, normal exam, non tender, soft, no organomegaly, no guarding, no rebound, abdominal exam reveled obese, soft, nontender no guarding no rigidity no cross or rebound tenderness, normally active bowel sounds. Strong bilateral femoral pulses no pulsating masses Back normal inspection, no CVA tenderness, no vertebral tenderness Extremities non-tender, normal range of motion, normal inspection Neurologic alert, isotope technician II-XII nml as tested, normal exam, oriented x 3 Reflexes Reflexes normal Yes Mental status normal mood/affect Skin intact, normal color, warm/dry Lymphatic no adenopathy Medical Decision Making LABS/Meds/Orders Pt receiving controlled substance in ED? No Results/Orders Laboratory Tests 07/26/17917: Amylase 34, Lipase 180 07/26/17917: Sodium 139, Potassium 3.3 L, Chloride 101, Carbon Dioxide 30, BUN 19 H, Creatinine 1.2 H, Estimated Creat Clear 102, Estimated GFR (MDRD) 49 L, Glucose 191 H, Calcium 8.9, Total Bilirubin 0.7, AST 38 H, ALT 62, Alkaline Phosphatase 93, Total Protein 7.5, Albumin 3.9, Globulin 3.6 H, Albumin/ Globulin Ratio 1.1, WBC 9.1, RBC 4.68, Hgb 12.7, Hct 38.2, MCV 81.6 L, RDW 15.0 , Plt Count 175, MPV 7.6, Gran % 84.9 H, Gran # 7.7, Lymphocytes % 9.7 L, Monocytes % 3.7, Eosinophils % 1.5, Basophils % 0.3, Lymphocytes # 0.9, Monocytes # 0.3, Eosinophils # 0.1, Basophils # 0.0, PUBS MCHC 33.2, MCH 27.1 Current Medication Orders Sig/Sadi Start time Last Medication Dose Route Stop Time Status Admin Promethazine HCl 0 .STK-MED ONE 07/26 1056 DC .ROUTE Sodium Chloride 25 ML .STK-MED ONE 07/26 1056 DC IV Morphine Sulfate 0 .STK-MED ONE 07/26 1055 DC .ROUTE Morphine Sulfate 2 MG ONCE ONE 07/26 1045 DC 07/26 IV 07/26 1046 1058 Promethazine HCl 12.5 MG ONCE ONE 07/26 1045 DC 07/26 IV 07/26 1046 1058 Sodium Chloride 25 ML ONCE ONE 07/26 1045 DC IV 07/26 1059 Potassium Chloride 0 .STK-MED ONE 07/26 1026 DC PO Ondansetron HCl 0 .STK-MED ONE 07/26 1023 DC .ROUTE Famotidine 0 .STK-MED ONE 07/26 1022 DC IV Famotidine 0 .STK-MED ONE 07/26 1013 DC IV Famotidine 20 MG ONCE ONE 07/26 1000 DC 07/26 IV 07/26 1001 1025 Ondansetron HCl 4 MG ONCE ONE 07/26 1000 DC 07/26 IV 07/26 1001 1025 Potassium Chloride 40 MEQ ONCE ONE 07/26 1000 DC 07/26 PO 07/26 1001 1026 Sodium Chloride 8 ML ONCE ONE 07/26 1000 DC IV 07/26 1001 Ondansetron HCl 4 MG ONCE ONE 07/26 0930 DC 07/26 IV 07/26 0931 0919 Ondansetron HCl 0 .STK-MED ONE 07/26 0915 DC .ROUTE Sodium Chloride 1,000 ML .STK-MED ONE 07/26 915 DC IV Sodium Chloride 10 ML PRN PRN 07/26 0915 AC IV 07/27 0915 Sodium Chloride 1,000 ML .Q1H1M 07/26 0915 DC 07/26 IV 07/26 1015 0920 Sodium Chloride 10 ML PRN PRN 07/26 0915 AC IV 11/12 0915 Orders Procedure Date/time Status DIET-NOTHING BY MOUTH 07/26 L Active DIARRHEA PANEL, PCR 07/[address] ABD/PELVIS REQ 07/26 919 Complete LIPASE 07/26 918 Complete AMYLASE 07/26 918 Complete IV SALINE LOCK 07/26 916 Active CBC WITH AUTO DIFF 07/26 916 Complete CHEM 12 PROFILE 07/26 916 Complete Departure Departure Time of Disposition 1001 Disposition Still a Patient Clinical Impression Primary Impression: Vomiting as manifestation of blood transfusion reaction Secondary Impressions: Diabetes, Enteritis, Pulmonary hypertension Condition STABLE Referrals Som ROWAN,Jesus Osborn (Family) Additional Instructions the patietn remained nauseous after second dose of zofran, she was given phenergen, her Ct scan shows fluid level with enteritis and fatty liver. I called Dr Haile to admit for NPO and IVF. Discharge Counseling Counseled pt/family regarding diagnosis, test results, medications/RX, home care, follow up needs ED Critical Care Critical Care No If Critical Care minutes are documented, the time involved in the performance of seperately reportable procedures was not counted toward critical care time documented. I directly delivered medical care to this critically ill and/or injured patient. Timely evaluation and treatment was necessary to address the significant organ system(s) dysfunction present in this patient. at 1100
--- NOTE | 2017-07-26 10:41 | RADIOLOGY REPORT PS360 ---
CT ABD PELVIS W/O CONTRAST CLINICAL INDICATION: Abdominal with nausea and vomiting and diarrhea ABD PAIN W/ N/V/D ORDERING PHYSICIAN: Ginger Agrawal MD PATIENT AGE: 47 years COMPARISON: 11/17/2016 TECHNIQUE: Axial images obtained with sagittal and coronal reformats. PROCEDURE: Oral Contrast: None IV Contrast: None . FINDINGS: No acute findings in the lower chest. There is diffuse fatty liver infiltration. There has been a prior cholecystectomy. The spleen, adrenal glands, pancreas, and kidneys have an unremarkable unenhanced appearance. No renal or ureteral calculi. No hydronephrosis. Unremarkable appendix. Prior hysterectomy. No pelvic mass or abnormal fluid collection. No evidence of appendicitis. No intestinal obstruction or free air. No acute bony anomalies. There is a surgical clip in the left lower quadrant anteriorly There are scattered nondistended fluid-filled small bowel with a few air-fluid levels is nonspecific but could be seen with enteritis. IMPRESSION: 1. Fatty liver. 2. Possible enteritis
--- OUTSIDE RECORDS SUMMARY | 2017-07-26 11:07 | External Medical Summary Rpt | CCD ---
Demographics Preferred Language Yoruba Marital Status Unknown Oriental Orthodox Affiliation Unknown Race Unknown Ethnic Group Unknown Author Author , JENNIFER RODRIGUEZ Address Unknown Phone Immunization Unable to retrieve immunization data due to connection failure with Immunization Registry. Please try again later.
--- OUTSIDE RECORDS SUMMARY | 2017-07-26 11:07 | External Medical Summary Rpt | CCD ---
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 (07-10-2017 09:03) VENOUS 73.2 % 75-80 complet [...] 017 K/mm3 ed monocyt 19:10 e count [place] % = 5.4 % 1.7-9.3 complet 017 [...] ed plasma 19:10 thyroid stimula ting horm Folate SerPl-mCnc (04-15-2017 14:24) Folate 11.8 >4.8 complet SerPl-m 017 ng/mL ed Cnc 14:24 Vit B12 SerPl-mCnc (04-15-2017 14:24) Vit B12 382 210-103 complet 017 pg/mL 3 ed SerPl-m 14:24 Cnc TSH SerPl DL<=0.005 mIU/L-aCnc (04-15-2017 14:24) TSH 2.05 0.4-4.2 complet SerPl 017 uIU/mL ed DL<=0.0 14:24 05 mIU/L-a Cnc CRP SerPl-mCnc (04-15-2017 14:24) CRP 0.4 0-0.9 complet SerPl-m 017 mg/dL ed Cnc 14:24 ESR Bld Qn (04-15-2017 14:20) ESR Bld 31 0-20 complet Qn 017 mm/hr ed 14:20
--- OUTSIDE RECORDS SUMMARY | 2017-07-26 11:07 | External Medical Summary Rpt | CCD ---
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 [...] 017 K/mm3 ed monocyt 19:10 e count [place] % = 5.4 % 1.7-9.3 complet 017 [...] SQUARE METERS Comment: If this patient is -[place], then multiply the Comment: result by 1.210. [...]
--- OUTSIDE RECORDS SUMMARY | 2017-07-26 11:07 | External Medical Summary Rpt | CCD ---
Demographics Preferred Language Romansh Marital Status Unknown Taoism Affiliation Unknown Race Unknown Ethnic Group Unknown Author Author , JENNIFER RODRIGUEZ Address Unknown Phone Immunization Unable to retrieve immunization data due to connection failure with Immunization Registry. Please try again later.
[2017-07-26 12:35] VITALS: BP 110/48
[2017-07-26] MEDS ORDERED: TOPIRAMATE PO (13:02)
[2017-07-26 15:30] VITALS: BP 96/49
[2017-07-26 15:47] VITALS: BP 110/48
[2017-07-26 19:49] VITALS: BP 92/51
[2017-07-27 04:08] VITALS: BP 87/58
[2017-07-27 06:54] LABS: LYMPH # 1.9 K/mm3 (0.7-4.5); LYMPH % 43.7 % (10-50.0)
[2017-07-27 06:57] LABS: HEMOGLOBIN 10.3 g/dL (12.2-16.2)
[2017-07-27 08:03] VITALS: BP 107/55
[2017-07-27 08:30] VITALS: BP 107/55
--- NOTE | 2017-07-27 08:48 | PHARMACY CLINIC NOTE ---
Patient Demographics Patient Demographics Admission date: 07/26/17 Date: 07/27/17 Time: 0847 Allergies Coded Allergies: No Known Allergies (03/10/17) HEIGHT- FT: 5 IN: 5.00 K.199 VTE General Information Labs: Laboratory Tests 07/27 07/26 0642 0918 Hematology Hgb (12.2 - 16.2 g/dL) 10.3 L 12.7 Hct (37.0 - 47.0 %) 31.3 L 38.2 Plt Count (142 - 424 K/mm3) 114 L 175 Disclaimer The following section includes nursing documentation that has been pulled in for pharmacy review. Patient's VTE score: 2 Patient's VTE Risk: VERY LOW RISK Clinical trial participant? No VTE prophylaxis [id number] VTE prophylaxis ordered? Yes Type of prophylaxis/treatment: CHRISTIAN at 0847
[2017-07-27] MEDS ORDERED: FUROSEMIDE80 M1 PO (09:55)
[2017-07-27] MEDS ORDERED: LEVOTHYROXINE0.05 M2 PO (09:56)
[2017-07-27] MEDS ORDERED: OMEPRAZOLE40 MG PO (09:57)
[2017-07-27] MEDS ORDERED: SPIRONOLACTONE50 MG PO (09:59)
[2017-07-27] MEDS ORDERED: FLUCONAZOLE150 MG PO (10:02)
[2017-07-27] MEDS ORDERED: MONTELUKAST SOD10 MG PO (10:03)
[2017-07-27] MEDS ORDERED: MIRAPEX 0.120.125 MG PO (10:03)
[2017-07-27] MEDS ORDERED: ISOSORBIDE MONO60 M1 PO (10:04)
[2017-07-27] MEDS ORDERED: ATORVASTATIN CA20 M1 PO (10:05)
[2017-07-27] MEDS ORDERED: CARVEDILOL 1212.5 MG PO (10:05)
[2017-07-27 13:07] LABS: AEROMONAS NOT DETECTED (NOT DETECTE); ASTROVIRUS NOT DETECTED (NOT DETECTE); CYCLOSPORA CAYETANENSIS NOT DETECTED (NOT DETECTE); E COLI O157 NOT DETECTED (NOT DETECTE); ENTEROAGGREGATIVE E COLI NOT DETECTED (NOT DETECTE); ENTEROTOXIGENIC E COLI NOT DETECTED (NOT DETECTE); SAPOVIRUS NOT DETECTED (NOT DETECTE); SHIGA-LIKE TOXIN PROD. E COLI NOT DETECTED (NOT DETECTE); SHIGELLA/ENTEROINVASIVE E COLI NOT DETECTED (NOT DETECTE); VIBRIO CHOLERAE NOT DETECTED (NOT DETECTE)
--- NOTE | 2017-07-27 14:02 | Discharge Summary Standard ---
Demographics: Admit date: 07/27/17 Chief complaint: n/v/d PRIMARY DIAGNOSIS: ENTERITIS Allergies: Coded Allergies: No Known Allergies (03/10/17) History of present illness: History of present illness: 47-year-old female presented to the ER with abdominal pain, nausea and vomiting and diarrhea. Patient family was diagnosed with C. difficile and Isaura virus. Patient reports decreased appetite and unable to keep any liquids down. Patient admitted for IV fluids and stool culture. Past medical history: Family HX Diabetes Yes CAD No Hypertension Yes Hyperlipidemia Yes Cancer No TB No Immunization HX DT/Tetanus Unknown Flu Refused Pneumonia Received In Past TB Test in last year No General CAD? No Angina: Yes MD: No Hypertension? No Hyperlipidemia? No CHF? No DVT? No PE? No COPD? No Asthma? Yes Anemia? No GERD? No Gastric ulcers? No GI Bleed? No Hernia? No Thyroid Problems? Yes Hypothyroidism? Yes CVA? No Seizures? No Diabetes? Yes Insulin Dependent: No Insulin Pump: No Home FSBS? No Renal Insuffiency? No UTI? Yes Stones? No BPH? No GB Disease: Yes Nephritic Syndrome? No Asplenia? No Hepatitis? No Sickle Cell Disease? No Arthritis? No Migraines? No Cataracts? No Glaucoma? No MRSA? Yes HIV? No TB? No Anxiety? No Depression? No Cancer? No More? Yes Additional hx: DJD OCCULT PNEUMONIA THAT DOESN'T REVEAL ON REG CHEST XRAYS; REQUIRES CT CHEST WITH CONTRAST TO BE SEEN (10/16/16) BIJEMENY Past Surgical HX Previous Surgery?Y Cholecystectomy Hysterectomy-Partial SLING MESH HYSTERECTOMY LEFT OVARY REMOVED HEART CATH X 2 ABLATION Current home meds: Reported Medications DULOXETINE HCL (Duloxetine Hydrochloride) 20 MG PO BID #60 CAP Zolpidem Tartrate (Ambien 10MG) 10 MG PO QHS PRN SLEEP Topiramate (Topiramate ER) 150 MG PO QHS Furosemide 80 MG PO BID #60 TAB Levothyroxine Sodium 0.05 MG PO DAILY #30 TAB Omeprazole (Omeprazole 40MG) 40 MG PO DAILY #30 CAP Spironolactone (Spironolactone) 50 MG PO DAILY #30 TAB Fluconazole (Fluconazole 150MG) 150 MG PO Q3D PRN PRN INFECTION #3 TAB PRAMIPEXOLE DIHYDROCHLORIDE (Pramipexole Dihydrochloride) 0.125 MG PO BID #30 TAB Montelukast Sodium 10 MG PO QHS #30 TAB Isosorbide Mononitrate (Isosorbide Mononitrate ER) 60 MG PO DAILY #30 TAB Carvedilol (Carvedilol 12.5MG) 12.5 MG PO BID #60 TAB Atorvastatin Calcium 20 MG PO QHS #30 TAB Albuterol (Albuterol-Hfa Inhaler) 1 PUFF IH PRN PRN BREATHING CHOLECALCIFEROL (VITAMIN D3) (Vitamin D) 1,000 IUNITS PO DAILY Metformin HCl (Metformin) 500 MG PO BID #60 Social Hx: Smoking HX Tobacco No Packs/day 1 1/2 - 2 PACKS Are you/the child exposed to second-hand smoke: No Alcohol Alcohol: No Hx of Drug Use Drug Use? No Review of systems: Constitutional No: no symptoms reported. Respiratory No: no symptoms reported. Cardiovascular No no symptoms reported Gastrointestinal/Abdominal diarrhea, nausea, poor appetite, poor fluid intake, vomiting Genitourinary No: no symptoms reported. Musculoskeletal No: no symptoms reported. Neurological No: see HPI. Exam: Lab data for last 24 hours: Laboratory Tests 07/27/17 0642: Sodium 141, Potassium 3.3 L, Chloride 106, Carbon Dioxide 30, BUN 16, Creatinine 1.1 H, Estimated Creat Clear 108, Estimated GFR (MDRD) 54 L, Glucose 120 H, Calcium 8.3 L, WBC 4.4 L, RBC 3.78 L, Hgb 10.3 L, Hct 31.3 L, MCV 82.8, RDW 15.1, Plt Count 114 L, MPV 9.0, Gran % 47.4, Gran # 2.1, Lymphocytes % 43.7, Monocytes % 6.9, Eosinophils % 1.6, Basophils % 0.4, Lymphocytes # 1.9, Monocytes # 0.3, Eosinophils # 0.1, Basophils # 0.0, PUBS MCHC 32.9, MCH 27.2 07/27/17 0600: Stl Aeromonas (PCR) NOT DETECTED, Stl Cyclospora species NOT DETECTED, Stool Rotavirus (PCR) NOT DETECTED, Stool Astrovirus (PCR) NOT DETECTED, Stool Campylobacter PCR NOT DETECTED, Stool Cryptosporidium PCR NOT DETECTED, Stl E. histolytica PCR NOT DETECTED, Stool Giardia Lamblia PCR NOT DETECTED, Stl P. shigelloides PCR NOT DETECTED, Stool Sapovirus (PCR) NOT DETECTED, Stool Vibrio (PCR) NOT DETECTED, Stl Vibrio cholerae PCR NOT DETECTED, Stl Norovirus GI/GII PCR DETECTED H, Adenovirus (PCR) NOT DETECTED, C. difficile Tox (PCR) DETECTED H, E. coli (PCR) NOT DETECTED, Salmonella (PCR) NOT DETECTED, Yersinia (PCR) NOT DETECTED Admission vital signs: 1ST Vital Signs Result Date Time Pulse Ox 98 07/26 907 B/P 129/67 07/26 907 Temp 98.9 07/26 907 Pulse 92 07/26 907 Resp 16 07/26 907 O2 Delivery ROOM AIR 07/26 1235 Exam General appearance: normal appearance, active, awake, no acute distress Eyes: normal exam ENT: normal exam Neck: normal inspection, full range of motion Cardiovascular: normal exam, regular rate & rhythm Respiratory: normal exam, aerating well, clear to auscultation, chest non- tender, good air movement, no respiratory distress ABD: normal exam, non-distended, normal bowel sounds, soft, tenderness Genitourinary: normal voiding & quantity Extremities: normal exam, moves all Musculoskeletal: normal exam Skin: normal exam, intact, warm Neuro: normal exam, alert, intact, oriented Hospital Course Hospital Course: STOOL CX POS FOR C DIFF, NORO, AND ECOLI-EPEC. IV fluids. Patient requesting to go home. We'll discharge home with follow-up in the office on Friday if symptoms worsen return. Medications Medications: Discharge meds are as noted. Follow up Follow up in office in: 3 DAYS with: JOEY MCKEON Comment: Som will round later today at 1812
[2017-07-27 15:30] LABS: ENTEROPATHOGENIC E COLI DETECTED (NOT DETECTE)
[2017-07-27 15:31] LABS: NOROVIRUS DETECTED (NOT DETECTE)
[2017-07-27 16:25] VITALS: BP 93/40
[2017-07-27] MEDS ORDERED: FLAGYL500 M1 PO (17:59)
[2017-07-27 18:15] VITALS: BP 93/40
== END 2017-07-27 18:36 | disposition home or self-care (01) ==
LOC: ER 09:05 → 2ND 11:04 → ER 11:04 → 2ND 12:29
PROVIDERS: Emergency Medicine
DX: K52.9 Noninfective gastroenteritis and colitis, unspecified (principal); I27.20 Pulmonary hypertension, unspecified; E11.9 Type 2 diabetes mellitus without complications; Z79.84 Long term (current) use of oral hypoglycemic drugs; Z79.899 Other long term (current) drug therapy; J45.909 Unspecified asthma, uncomplicated; E03.9 Hypothyroidism, unspecified; Z90.710 Acquired absence of both cervix and uterus; Z83.3 Family history of diabetes mellitus; Z82.49 Family history of ischemic heart disease and other diseases of the circulatory system; Z80.9 Family history of malignant neoplasm, unspecified; Z87.891 Personal history of nicotine dependence; T80.89XA Other complications following infusion, transfusion and therapeutic injection, initial encounter; R11.10 Vomiting, unspecified; K76.0 Fatty (change of) liver, not elsewhere classified
CPT/HCPCS: G0378; J2405